=== PATIENT | female | born 2000 | race Caucasian/White ===

== ENCOUNTER 2019-12-31 08:10 | Emergency (ER) | payer OTHER, SELFPAY ==
--- NOTE | ~2019-12-31 | XR_ITS ---
EXAMINATION: [id number] DATE: 12/31/2019 08:39 INDICATION: Mid left-sided rib pain post fall TECHNIQUE: A frontal inspiratory view of the chest and 4 views of the left ribs were obtained. COMPARISON: None FINDINGS: No rib fractures identified. Lungs are clear with no focal airspace opacities, pulmonary edema, pleur al effusion or pneumothorax. Cardiomediastinal silhouette is normal. IMPRESSION: 1. No rib fracture or acute cardiopulmonary disease. Reviewed, dictated and finalized at location A.
[2019-12-31 08:23] VITALS: BP 140/84; PULSE 73; RESP 18; TEMP 36.6; O2SAT 100
--- NOTE | 2019-12-31 08:36 | ED.GENADULT ---
HPI - General Adult General Chief complaint: Wound/Laceration Stated complaint: Rib pain/shortness of breath Time Seen by Provider: 12/31/19 08:36 Source: patient Mode of arrival: ambulatory Limitations: no limitations History of Present Illness HPI narrative: Pretty Pretty is a 19 yo female who comes to express care with left rib pain after falling off bed when horsing around with friends. States she has tenderness that runs from her flank forward. Here for chest x-ray to make sure she did not break a rib Related Data Allergies Allergy/AdvReac Type Severity Reaction Status Date / Time No Known Allergies Allergy Verified 12/31/19 08:31 Review of Systems Review of Systems: Narrative: CONSTITUTIONAL: Denies fever, chills, sweats. EYES: Denies visual changes, redness, discharge. ENT: Denies rhinorrhea, congestion, sore throat, otalgia. CARDIOVASCULAR: Denies chest pain, palpitations, edema. RESPIRATORY: Denies dyspnea, wheezing, cough. Chest wall pain GASTROINTESTINAL: Denies abdominal pain, nausea, vomiting, diarrhea. GENITOURINARY: Denies dysuria, hematuria, abnormal discharge SKIN: Denies rash or itching. NEUROLOGIC: Denies numbness, or focal weakness. PSYCHIATRIC: Denies anxiety or depression. [facility] Family History Family History (Updated 12/31/19 @ 08:42 by Tosin Camacho CNP) Other Hypertension Social History Social History (Updated 12/31/19 @ 08:41 by Tosin Camacho CNP) Smoking status: Current some day smoker Tobacco type: e-cigarettes/vaping Alcohol intake: current Comments At time of signature, I agree with nursing past medical, surgical, social and family history. There is no relevant family history pertinent to the presenting complaint. Exam Narrative: Exam Narrative: GENERAL: This is a well-nourished, well-developed patient, in mild distress. HEAD: normocephalic, atraumatic. EYES Sclera clear/white. Vision is grossly intact. EARS: External ears normal, . Hearing grossly intact. NOSE: External nose normal without nasal discharge, nares without redness, no rhinorrhea. THROAT: Mucous membranes moist, NECK: Neck supple, non-tender CARDIOVASCULAR: Regular rate and rhythm without murmurs, gallops, or rubs. RESPIRATORY: Clear to auscultation. Breath sounds equal bilaterally. No wheezes, rales, or rhonchi. Chest wall tenderness on the left at rib 5 6 patient states it hurts to take deep breath GASTROINTESTINAL: Abdomen soft, non-tender, SKIN: warm, intact with no suspicious lesions or rash, good texture and turgor. NEURO: awake, alert, and oriented to person, place and time. There were no obvious focal neurologic abnormalities. Steady gait EXTREMITIES: Normal range of motion. BACK: Nontender without deformity Course Course Emergency Course: X-ray of ribs Baclofen Vital Signs Vital signs: Vital Signs Temperature 97.8 F 12/31/19 08:23 Pulse Rate 73 12/31/19 08:23 Respiratory Rate 18 12/31/19 08:23 Blood Pressure 140/84 12/31/19 08:23 Pulse Oximetry 100 12/31/19 08:23 Temperature 97.8 F 12/31/19 08:23 Pulse Rate 73 12/31/19 08:23 Respiratory Rate 18 12/31/19 08:23 Blood Pressure 140/84 12/31/19 08:23 Pulse Oximetry 100 12/31/19 08:23 Medical Decision Making Differential Diagnosis Differential Diagnosis: Rib contusion versus fracture Vital Signs Vital Signs: Vital Signs Temperature 97.8 F 12/31/19 08:23 Pulse Rate 73 12/31/19 08:23 Respiratory Rate 18 12/31/19 08:23 Blood Pressure 140/84 12/31/19 08:23 Pulse Oximetry 100 12/31/19 08:23 Temperature 97.8 F 12/31/19 08:23 Pulse Rate 73 12/31/19 08:23 Respiratory Rate 18 12/31/19 08:23 Blood Pressure 140/84 12/31/19 08:23 Pulse Oximetry 100 12/31/19 08:23 Discharge Plan Discharge Clinical Impression: Acute chest wall pain Patient Disposition: Home, Self-Care Condition: Stable Instructions: Chest Wall Pain (ED) Prescriptions: Ne
== END 2019-12-31 09:00 | disposition home or self-care (01) ==
PROVIDERS: Emergency Provider Nurse Practitioner; PCP Pediatrics
DX: R07.89 Other chest pain (principal); F17.290 Nicotine dependence, other tobacco product, uncomplicated; W06.XXXA Fall from bed, initial encounter; Y93.83 Activity, rough housing and horseplay
CPT/HCPCS: 71101; 99213; G0463

== ENCOUNTER 2020-03-25 12:39 | Emergency (ER) | payer OTHER, SELFPAY ==
[2020-03-25 12:49] VITALS: BP 118/80; PULSE 100; RESP 16; TEMP 36.9; O2SAT 98
--- NOTE | 2020-03-25 13:51 | ED.GENADULT ---
HPI - General Adult General Chief complaint: Upper Respiratory Infection Stated complaint: sore throat Time Seen by Provider: 03/25/20 13:52 Source: patient and RN notes reviewed Mode of arrival: ambulatory Limitations: no limitations History of Present Illness HPI narrative: 19-year-old female presents with complaints of sore throat and intermittent headache (none now, and not the worst of her life) for the past 2 days. Excedrin with little relief. No high fevers, drooling, neck or throat swelling. Pain is bilateral. Hurts to swallow. Exacerbation factors consist of eating and drinking. No rhinorrhea. Nasal congestion. No voice change. No nausea, vomiting, or abdominal pain. Tolerating liquids well. Denies chills, dyspnea, difficulty swallowing, jaw pain, dental pain, facial pain, foreign body sensation, and rash. Remains active. The patient reports she have not been diagnosed with COVID-19. The patient reports she is not waiting for the results of a COVID-19 lab test. The patient reports she do not have fever, chills, weakness, or fatigue The patient reports she do not have a new or worsening cough or shortness of breath. Denies chest pain. The patient reports she do not have any rhinorrhea, congestion, loss of taste, or diarrhea. Tolerating po intake well. Denies recent traveling. Denies concerns for COVID-19 or exposures been home with limited outdoor exposure except for essential household needs, work, and return home. At this time, patient is not suspected of having COVID-19. Some parts of this dictation were generated by voice recognition software and may contain typographical and/or grammatical inaccuracies. Related Data Allergies Allergy/AdvReac Type Severity Reaction Status Date / Time No Known Allergies Allergy Verified 12/31/19 08:31 Review of Systems Review of Systems: Narrative: CONSTITUTIONAL: Denies fever, chills, sweats. EYES: Denies visual changes, redness, discharge. ENT: Denies rhinorrhea, otalgia, congestion. Complains of sore throat. CARDIOVASCULAR: Denies chest pain, palpitations, edema. RESPIRATORY: Denies dyspnea, wheezing. Complains of cough. GASTROINTESTINAL: Denies abdominal pain, nausea, vomiting, diarrhea. GENITOURINARY: Denies dysuria, hematuria, abnormal discharge. SKIN: Denies rash or itching. MUSCULOSKELETAL: Denies acute back pain, joint pain, or myalgia. NEUROLOGIC: Denies numbness or focal weakness. PSYCHIATRIC: Denies anxiety or depression. Complains of intermittent CARMONA, All systems reviewed & are unremarkable except as noted in HPI and below. [facility] Past Medical History Medical History (Updated 03/26/20 @ 00:00 by Damian Dadave) Appendicitis Surgical History Surgical History (Updated 03/25/20 @ 14:16 by NASH Glasgow) Hx of appendectomy Family History Family History (Updated 03/25/20 @ 14:17 by NASH [place]) Father Hypertension Mother Multiple sclerosis Social History Social History (Updated 03/25/20 @ 14:18 by NASH [place]) Smoking status: Former smoker Tobacco type: e-cigarettes/vaping Second hand tobacco smoke exposure: No Smoking end date: 01/02/20 Alcohol intake: current Substance use: never Gender identity (if verbalized by the patient): Female Comments At time of signature, agree with nurse past medical, surgical, social, and family history. There is no relevant family history pertinent to the presenting complaint. Exam Narrative: Exam Narrative: GENERAL: This is a well-nourished, well-developed patient, in no apparent distress. Speaks in full sentences without deficits and ambulates with steady gait without dyspnea. HEAD: normocephalic, atraumatic. EYES: PERRL. Sclera clear/white. Vision is grossly intact. EARS: External ears normal, auditory canals clear and without drainage, TMs normal without perforation. Hearing grossly intact. NOSE: External nose normal with no obvious nasal di
== END 2020-03-25 14:31 | disposition home or self-care (01) ==
PROVIDERS: Emergency Provider Nurse Practitioner Family
DX: J02.9 Acute pharyngitis, unspecified (principal); Z20.828 Contact with and (suspected) exposure to other viral communicable diseases
CPT/HCPCS: 87081; 87804; 87880; 99213; G0463

== ENCOUNTER 2020-05-29 15:37 | Emergency (ER) | payer OTHER, SELFPAY ==
--- NOTE | ~2020-05-29 | CT_ITS ---
EXAMINATION: CT facial bones wo con DATE: 05/29/2020 18:20 INDICATION: Black eye. Nasal pain. TECHNIQUE: Computed tomography (CT) of the facial bones was performed without intravenous contrast. T he dose-length product was 273.04 mGy-cm. Automated exposure control and iterative reconstruction nba hnique were employed. COMPARISON: None FINDINGS: There is a minimally displaced left nasal fracture. Mild soft tissue swelling. No foreign b odies. Orbits are unremarkable without evidence for fracture. Paranasal sinuses are pneumatized. Vinny ible within normal limits. Temporal mandibular joints are symmetric. Visualized aspects of the upper cervical spine are unremarkable. Zygomatic arches and pterygoid plates are normal. IMPRESSION: 1. Minimally displaced left nasal fracture. Reviewed, dictated and finalized at location A.
[2020-05-29 15:38] VITALS: BP 149/83; PULSE 83; RESP 18; TEMP 36.3; O2SAT 100
[2020-05-29 16:53] VITALS: BP 132/89; PULSE 76; RESP 18; TEMP 36.7; O2SAT 100
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
[2020-05-29 18:45] VITALS: BP 156/95; PULSE 76; RESP 18; TEMP 36.4; O2SAT 98
== END 2020-05-29 20:05 | disposition home or self-care (01) ==
PROVIDERS: Emergency Provider Emergency Medicine
DX: S02.2XXA Fracture of nasal bones, initial encounter for closed fracture (principal); Z87.891 Personal history of nicotine dependence; Y04.2XXA Assault by strike against or bumped into by another person, initial encounter
CPT/HCPCS: 70486; 99284

== ENCOUNTER 2020-06-26 16:53 | Emergency (ER) | payer OTHER, SELFPAY ==
[2020-06-26 17:00] VITALS: BP 134/80; PULSE 82; RESP 18; TEMP 36.7; O2SAT 100
--- NOTE | 2020-06-26 17:04 | ED.ABDPAIN ---
HPI - Abdominal Pain General Chief Complaint: Abdominal Pain Stated Complaint: abdominal pain Time Seen by Provider: 06/26/20 17:05 Source: patient and RN notes reviewed Mode of arrival: ambulatory Limitations: no limitations History of Present Illness HPI narrative: 20-year-old female presents with concern for nausea, vomiting, diarrhea. Reports symptoms started over the weekend. Reports last episode of vomiting was on Thursday. Reports diarrhea episodes have been lessening. Reports 2 episodes diarrhea today. She denies fever, chills, body aches, cough, sweats, chills, runny nose, nasal congestion, sore throat, headache. Reports she was positive for Covid at the end of March. Reports she started her menstrual period yesterday MD elicited complaint: other (Nausea vomiting diarrhea) Related Data Home Medications Medication Instructions Recorded Confirmed No Home Medications 05/29/20 05/29/20 Allergies Allergy/AdvReac Type Severity Reaction Status Date / Time No Known Allergies Allergy Verified 06/26/20 17:09 Review of Systems Review of Systems: Narrative: CONSTITUTIONAL: Denies malaise, chills, sweats, or fever. EYES: Denies visual changes, redness, or discharge. ENT: Denies rhinorrhea, congestion, sinus pain, otalgia or sore throat. CARDIOVASCULAR: Denies chest pain, palpitations, or edema. RESPIRATORY: Denies cough or dyspnea. GASTROINTESTINAL: Denies abdominal pain, bloody, or mucous stools. Reports vomiting throughout the weekend, reports last vomiting episode was on Thursday. Reports diarrhea throughout the weekend, episodes of diarrhea have been lessening. Reports 2 episodes of diarrhea today. GENITOURINARY: Denies dysuria or hematuria. SKIN: Denies rash or itching. MUSCULOSKELETAL: Denies back pain or myalgia. NEUROLOGIC: Denies headache. All systems reviewed & are unremarkable except as noted in HPI and below PMFSH Past Medical History Medical History (Updated 06/26/20 @ 17:15 by Viola Jones NP) Appendicitis Surgical History Surgical History (Updated 03/25/20 @ 14:16 by NASH Glasgow) Hx of appendectomy Family History Family History (Updated 03/25/20 @ 14:17 by NASH Glagsow) Father Hypertension Mother Multiple sclerosis Social History Social History (Updated 03/25/20 @ 14:18 by NASH [place]) Smoking status: Former smoker Tobacco type: e-cigarettes/vaping Second hand tobacco smoke exposure: No Smoking end date: 01/02/20 Alcohol intake: current Substance use: never Gender identity (if verbalized by the patient): Female Comments At time of signature, agree with nursing past medical, surgical, social and family history. There is no relevant family history pertinent to the presenting complaint Exam Narrative: Exam Narrative: GENERAL: Well-appearing, well-nourished, and in no acute distress. HEAD: Normocephalic, atraumatic. EYES: PERRLA, conjunctivae clear, and EOMI. ENT: Mucous membranes moist. NECK: Supple. No lymphadenopathy CHEST: Speaks in full sentences. No respiratory distress. HEART: Regular rate and rhythm. ABDOMEN: Soft, flat, nondistended. No guarding, rebound tenderness, or rigid. No pulsatilla masses. Bowel sounds present in all four quadrants. No organomegaly. Negative Moore?s sign. No periumbilical tenderness. No Supra public tenderness or distension. Good femoral pulses bilaterally. No hernia noted. No scars or surface trauma. SKIN: Warm, dry, no rash. NEURO: Alert and oriented x3. PSYCH: Normal mood and affect Course Course Emergency Course: Patient is aware of diagnosis, understands and agrees to treatment plan. Anticipatory guidance given. Patient agrees to follow-up as directed and is aware of reasons to seek care at the emergency department. Portions of this record may have been created with voice recognition software Vital Signs Vital signs: Vital Signs Temperature 98.1 F 06/26/20 17:00 Pulse Ra
[2020-06-26 17:10] VITALS: BP 134/80; PULSE 82; RESP 18; TEMP 36.7; O2SAT 100
== END 2020-06-26 17:18 | disposition home or self-care (01) ==
PROVIDERS: Emergency Provider Nurse Practitioner
DX: R11.10 Vomiting, unspecified (principal); R19.7 Diarrhea, unspecified; F17.200 Nicotine dependence, unspecified, uncomplicated
CPT/HCPCS: 99211; G0463

== ENCOUNTER 2022-04-09 12:29 | Emergency (ER) | payer OTHER, SELFPAY ==
--- NOTE | 2022-04-09 12:34 | ED.SKABFB ---
HPI - Skin/Abscess/Foreign Bdy General Chief complaint: Skin/Abscess/Foreign Body Stated complaint: RASH Time Seen by Provider: 04/09/22 12:35 Source: patient and RN notes reviewed History of Present Illness HPI narrative: Patient is a 21-year-old female who presents the urgent care with complaints of a itchy circular rash to the left arm, right chest and the bridge of the nose. Patient states she noticed the areas on the left arm approximately 2 weeks ago and has since spread. Patient has not done anything [id number] for her symptoms. Patient states that she does not use a public gym or showering. States that no one else in the home has the rash. No other acute complaints. No acute distress noted. Patient aware of the plan of care. Some parts of this dictation were generated by voice recognition software and may contain typographical and/or grammatical inaccuracies. Related Data Allergies Allergy/AdvReac Type Severity Reaction Status Date / Time No Known Allergies Allergy Verified 06/26/20 17:09 Review of Systems Review of Systems: CONSTITUTIONAL: Denies fever, chills, or sweats. EYES: Denies visual changes, redness, or discharge. ENT: Denies rhinorrhea, congestion, sore throat, or otalgia. CARDIOVASCULAR: Denies chest pain, palpitations, or edema. RESPIRATORY: Denies cough or dyspnea. GASTROINTESTINAL: Denies abdominal pain, nausea, vomiting, or diarrhea. GENITOURINARY: Denies dysuria or hematuria. SKIN: Reports of circular itchy rash to the left upper arm, right chest and bridge of the nose MUSCULOSKELETAL: Denies back pain, joint pain, or myalgia. NEUROLOGIC: Denies headache, numbness, or weakness. All other systems reviewed are negative, except as documented in HPI. [facility] Past Medical History Medical History (Updated 04/09/22 @ 12:53 by NASH Stewart) Appendicitis Surgical History Surgical History (Updated 03/25/20 @ 14:16 by NASH Glasgow) Hx of appendectomy Family History Family History (Updated 03/25/20 @ 14:17 by NASH Glasgow) Father Hypertension Mother Multiple sclerosis Social History Social History (Updated 03/25/20 @ 14:18 by NASH [place]) Smoking status: Former smoker Tobacco type: e-cigarettes/vaping Second hand tobacco smoke exposure: No Smoking end date: 01/02/20 Alcohol intake: current Substance use: never Gender identity (if verbalized by the patient): Female Sexual Orientation (if Verbalized by the Patient): Straight or Heterosexual Comments At the time of my signature, I reviewed and agree with the nursing past medical, surgical, social, and family history. There is no relevant family history pertinent to the patient complaint. Exam Narrative: GENERAL: This is a well-nourished, well-developed patient, in no apparent distress. HEAD: normocephalic, atraumatic. EYES: PERRL. Sclera clear/white. Vision is grossly intact. EARS: External ears normal NOSE: External nose normal with no obvious nasal discharge, nares without redness, no rhinorrhea. THROAT: Mucous membranes moist NECK: Neck supple CARDIOVASCULAR: Regular rate and rhythm without murmurs, gallops, or rubs. RESPIRATORY: Clear to auscultation. Breath sounds equal bilaterally. No wheezes, rales, or rhonchi. SKIN: tinea corporis lesions noted to the left arm, right chest and the bridge of the nose measuring approximately 0.25 to 0.5 cm in circumference. warm, intact with no suspicious lesions or rash, good texture and turgor. NEURO: awake, alert, and oriented to person, place and time. There were no obvious focal neurologic abnormalities. EXTREMITIES: No clubbing, cyanosis, or edema. Course Course Level of Care: Express Care Visit Vital Signs Vital signs: Vital Signs Temperature 98.2 F 04/09/22 12:35 Pulse Rate 68 04/09/22 12:35 Respiratory Rate 16 04/09/22 12:35 Blood Pressure 117/88 04/09/22 12:35 Pulse Oximetry 98 04/09/22 12:35 Oxy
[2022-04-09 12:35] VITALS: BP 117/88; PULSE 68; RESP 16; TEMP 36.8; O2SAT 98
== END 2022-04-09 13:00 | disposition home or self-care (01) ==
PROVIDERS: Emergency Provider Nurse Practitioner Family; PCP Nurse Practitioner Family
DX: B35.4 Tinea corporis (principal)
CPT/HCPCS: 99213; G0463

== ENCOUNTER 2022-05-18 18:45 | Emergency (ER) | payer OTHER, SELFPAY ==
[2022-05-18 19:15] VITALS: BP 111/60; PULSE 81; RESP 16; TEMP 36.4; O2SAT 100
[2022-05-18 19:49] LABS: Add Urine Microscopic? NO; Appearance Urine Clear (Clear); Bilirubin Urine Negative (Negative); Blood Urine Negative (Negative); Color Urine Yellow (Yellow); Glucose Urine UA Negative (Negative); Ketones Urine Negative (Negative); Leukocyte Esterase Ur Negative LEU/UL (Negative); Nitrate Urine Negative (Negative); Protein Urine Negative (Negative); Specific Grav Ur 1.021 (1.001-1.035); Urobilinogen Urine Negative mg/dL (<2.0)
--- NOTE | 2022-05-18 21:47 | PC.NURSE ---
patient walked out of ED without difficulty and in no distress.
== END 2022-05-18 22:53 | disposition left against medical advice (07) ==
PROVIDERS: Emergency Provider Emergency Medicine; PCP Nurse Practitioner Family
DX: R31.9 Hematuria, unspecified (principal)
CPT/HCPCS: 81003; 81025; 99199

== ENCOUNTER 2022-05-19 18:47 | Emergency (ER) | payer OTHER, SELFPAY ==
[2022-05-19 19:02] VITALS: BP 141/71; PULSE 91; RESP 16; TEMP 36.7; O2SAT 100
--- NOTE | 2022-05-19 19:34 | ED.FEMALEGU ---
HPI - Female Genitourinary General Chief complaint: Urogenital-Female Stated complaint: lower back pain/blood in urine Time Seen by Provider: 05/19/22 19:34 Source: patient and RN notes reviewed Mode of arrival: ambulatory Limitations: no limitations History of Present Illness HPI Narrative: 22-year-old female presented for complaint of urinary frequency and low pelvic cramps and mid low back pain x2 days. LMP ended 04/30. Not on control, endorses new sexual partner. Denies irregular vaginal bleeding, discharge, itching, dysuria, hematuria, fevers or chills. She is not taking anything for symptoms. Related Data Home Medications Medication Instructions Recorded Confirmed ergocalciferol (vitamin D2) 1,250 50,000 unit PO DAILY 05/19/22 05/19/22 mcg (50,000 unit) capsule Allergies Allergy/AdvReac Type Severity Reaction Status Date / Time No Known Allergies Allergy Verified 05/19/22 19:18 Review of Systems Review of Systems: CONSTITUTIONAL: Denies body aches, fever, chills, or sweats. CARDIOVASCULAR: Denies chest pain, palpitations, or edema. RESPIRATORY: Denies cough or dyspnea. GASTROINTESTINAL: Denies abdominal pain, nausea, vomiting, or diarrhea. GENITOURINARY: Per HPI SKIN: Denies rash, itching, or wounds. MUSCULOSKELETAL: Denies back pain or myalgia. [facility] Past Medical History Medical History Appendicitis Surgical History Surgical History Hx of appendectomy Family History Family History Father Hypertension Mother Multiple sclerosis Social History Social History Smoking status: Former smoker Tobacco type: e-cigarettes/vaping Second hand tobacco smoke exposure: No Smoking end date: 01/02/20 Alcohol intake: current Substance use: never Gender identity (if verbalized by the patient): Female Sexual Orientation (if Verbalized by the Patient): Straight or Heterosexual Comments At time of signature, I have reviewed and agree with nursing past medical, surgical, social and family history unless otherwise noted. Please see nursing chart for further information. There is no relevant family history pertinent to the presenting complaint Exam Narrative: GENERAL: Well-appearing ENT: Mucous membranes pink and moist. CHEST: No respiratory distress. Clear to auscultation. HEART: Regular rate and rhythm. ABDOMEN: Soft, mild suprapubic tenderness with palpation, nondistended, normal active bowel sounds. No CVA tenderness MUSCULOSKELETAL: Mid lumbar paraspinal tenderness SKIN: Warm, dry, no rash. PSYCH: Normal affect. No signs of depression or anxiety. Course Course Emergency Course: Patient is aware of diagnosis, understands and agrees to treatment plan. Anticipatory guidance given. Patient agrees to follow-up as directed and is aware of reasons to seek care at the emergency department. Portions of this record may have been created with voice recognition software Level of Care: Express Care Visit Vital Signs Vital signs: Vital Signs Temperature 98.1 F 05/19/22 19:02 Pulse Rate 91 05/19/22 19:02 Respiratory Rate 16 05/19/22 19:02 Blood Pressure 141/71 H 05/19/22 19:02 Pulse Oximetry 100 05/19/22 19:02 Oxygen Delivery Room Air 05/19/22 19:02 Temperature 98.1 F 05/19/22 19:02 Pulse Rate 91 05/19/22 19:02 Respiratory Rate 16 05/19/22 19:02 Blood Pressure 141/71 H 05/19/22 19:02 Pulse Oximetry 100 05/19/22 19:02 Oxygen Delivery Room Air 05/19/22 19:02 Reviewed MDM - Female Genitourinary MDM Narrative Medical decision making narrative: Urine Preg negative, urine dip unremarkable. Results reviewed with patient. Urine specimen collected for GC, chlamydia, trich. Informed Pt will be contacted w/ resu
== END 2022-05-19 20:00 | disposition home or self-care (01) ==
PROVIDERS: Emergency Provider Nurse Practitioner Family; PCP Nurse Practitioner Family
DX: R35.0 Frequency of micturition (principal); Z11.3 Encounter for screening for infections with a predominantly sexual mode of transmission
CPT/HCPCS: 81003; 81025; 87086; 87491; 87591; 87661; 99214; G0463

== ENCOUNTER 2022-12-08 10:43 | Emergency (ER) | payer SELFPAY ==
--- NOTE | ~2022-12-08 | XR_ITS ---
EXAMINATION: XR chest 2V 12/08/2022 11:15 INDICATION: Chest tightness PROCEDURE: 2 view chest COMPARISON: No prior studies for comparison. FINDINGS: The lungs are clear. The cardiomediastinal silhouette is within normal limits. There are no pleural effusions. There is no pneumothorax suspected. IMPRESSION: 1: NO ACUTE CARDIOPULMONARY DISEASE. Reviewed, dictated and finalized at location B.
[2022-12-08 10:44] VITALS: BP 144/76; PULSE 95; RESP 18; TEMP 36.8; O2SAT 100
--- NOTE | 2022-12-08 10:55 | PC.NURSE ---
States she is having chest tightness and discomfort in the middle of her chest that has been ongoing since yesterday. States the tightness severity has reduced in that time.
--- NOTE | 2022-12-08 10:56 | ECG_ITS ---
Measurements Intervals [place] Rate: 82 P: 32 KS: 149 QRS: 33 QRSD: 86 T: 26 QT: 373 QTc: 437 Interpretive Statements SINUS RHYTHM FREQUENT VENTRICULAR PREMATURE COMPLEXES ABNORMAL ECG NO PREVIOUS ECG AVAILABLE FOR COMPARISON Electronically Signed On 12-08-2022 13:23:40 CDT by Tom Gavin D.O.
[2022-12-08 11:42] VITALS: BP 129/89; PULSE 76; RESP 23; O2SAT 99
[2022-12-08] MEDS: ASPIRIN 81 MG CHEWABLE TABLET 324 MG PO (11:43)
[2022-12-08 11:46] VITALS: BP 127/104; PULSE 72; RESP 21; O2SAT 100
[2022-12-08 11:46] LABS: Basophils Percent Auto 0.2 % (0.2-1.2); Eosinophils Absolute Auto 0.1 K/mm3 (0-0.3); Eosinophils Percent Auto 1.3 % (0-4.4); Hematocrit 38.7 % (37.0-47.0); Hemoglobin 12.8 g/dL (12.0-15.0); Immature Granulocyte Absolute 0.01 K/mm3 (0.00-0.031); Immature Granulocyte Percent A 0.2 % (0-0.5); Lymphocytes Absolute Auto 1.29 K/mm3 (0.9-3.2); Lymphocytes Percent Auto 28.2 % (18.3-44.2); Mean Corpuscular HGB Conc 33.1 g/dl (32-36); Mean Corpuscular Hemoglobin 28.8 pg (26-34); Mean Platelet Volume 10.9 fl (7.4-10.4); Monocytes Absolute Auto 0.3 K/mm3 (0.1-0.6); Monocytes Percent Auto 5.9 % (2.6-8.5); Neutrophils Absolute Auto 2.9 K/mm3 (1.3-6.7); Neutrophils Percent Auto 64.2 % (45.5-73.1); Platelet Count Result 206 k/mm3 (150-375); Red Blood Count 4.45 M/mm3 (4.2-5.4); Red Cell Distribution Width 11.9 % (11.5-14.5); White Blood Count 4.6 K/mm3 (4.5-10.0)
--- NOTE | 2022-12-08 11:51 | ED.ARRPALP ---
HPI - Arrhythmia/Palpitations General Chief Complaint: Arrhythmia/Palpitations Stated Complaint: palp Time Seen by Provider: 12/08/22 11:16 History of Present Illness HPI narrative: 22-year-old female presents with chest palpitations and tightness since Thursday at 1 AM. Patient states she was sitting at home and felt chest tightness and palpitations. Patient has a history of anxiety and was having an anxiety attack at the time. Patient called 911 was checked out by EMS. Patient refused to go to the hospital and was told the EKG had an irregular rhythm. Patient called PCP this morning and was instructed to go to the ER for further evaluation. Patient states she still having slight chest tightness and feels palpitations every once in a while. Patient denies history of irregular heartbeats or cardiac abnormalities. Patient takes Ativan for anxiety. Patient denies any other symptoms Onset (ago): day(s) Associated symptoms: anxiety Related Data Home Medications Medication Instructions Recorded Confirmed ergocalciferol (vitamin D2) 1,250 50,000 unit PO DAILY 05/19/22 05/19/22 mcg (50,000 unit) capsule Allergies Allergy/AdvReac Type Severity Reaction Status Date / Time No Known Allergies Allergy Verified 05/19/22 19:18 Review of Systems Review of Systems: A 10 system review of systems was completed on the patient and is negative except for what is stated in the HPI. Nursing and ancillary documentation was reviewed. [facility] Past Medical History Medical History Appendicitis Surgical History Surgical History Hx of appendectomy Family History Family History Father Hypertension Mother Multiple sclerosis Social History Social History Smoking status: Former smoker Tobacco type: e-cigarettes/vaping Second hand tobacco smoke exposure: No Smoking end date: 01/02/20 Alcohol intake: current Substance use: never Living arrangements: with family Occupation/Education: occupation Gender identity (if verbalized by the patient): Female Sexual Orientation (if Verbalized by the Patient): Straight or Heterosexual Exam Narrative: GENERAL: Well-appearing, well-nourished, and in no acute distress. HEAD: Normocephalic, atraumatic. EYES: PERRLA and EOMI. ENT: Nares clear, no rhinorrhea or epistaxis. Mucous membranes moist. NECK: Supple. CHEST: Clear to auscultation. No respiratory distress. HEART: normal rate with intermittent irregular rhythm. No murmur heard. Normal peripheral pulses. ABDOMEN: Soft, nontender, nondistended, normal active bowel sounds. EXTREMITIES: Normal range of motion. No edema. SKIN: Warm, dry, no rash. NEURO: No focal deficits. Alert and oriented x3. PSYCH: Normal mood and affect. Course Course Emergency Course: EKG performed at 1103 shows sinus rhythm with PVC. Consultations Consultation #1: Spoke with Nena Schulte NP regarding patient. Will refer to cardiology and patient to follow-up with her in 2 to 3 days Date: 12/08/22 Time: 12:54 Vital Signs Vital signs: Vital Signs Temperature 36.8 C 12/08/22 10:44 Pulse Rate 95 12/08/22 10:44 Respiratory Rate 18 12/08/22 10:44 Blood Pressure 144/76 H 12/08/22 10:44 Pulse Oximetry 100 12/08/22 10:44 Oxygen Delivery Room Air 12/08/22 10:44 Temperature 36.8 C 12/08/22 10:44 Pulse Rate 95 12/08/22 10:44 Respiratory Rate 18 12/08/22 10:44 Blood Pressure 144/76 H 12/08/22 10:44 Pulse Oximetry 100 12/08/22 10:44 Oxygen Delivery Room Air 12/08/22 10:44 MDM - Arrhythmia/Palpitations MDM Narrative Medical decision making narrative: Will refer to cardiology and have the patient follow-up with PCP Differential Diagnosis Differential diagnosis:
[2022-12-08 11:57] LABS: Alanine Aminotransferase 18 U/L (6-35); Albumin Level 4.7 g/dL (3.5-5.1); Alkaline Phosphatase 38 U/L (38-126); Anion Gap 8 mmol/L (8-16); Aspartate Amino Transferase 18 U/L (14-36); Bilirubin,Total 0.7 mg/dL (0.2-1.3); Blood Urea Nitrogen 9 mg/dL (7-17); Calcium 9.2 mg/dL (8.4-10.2); Carbon Dioxide 25 mmol/L (22-30); Chloride 105 mmol/L (98-107); Estimated CRCL calculation 108 ml/min; Estimated Glomerular Filt Rate > 60; Glucose 96 mg/dL (65-110); Lipase 52 U/L (23-300); Magnesium 1.8 mg/dL (1.6-2.3); Sodium 138 mmol/L (137-145)
[2022-12-08 12:01] VITALS: BP 122/107; PULSE 75; RESP 18; O2SAT 98
[2022-12-08 12:08] LABS: Prothrombin Time 13.5 Seconds (11.1-14.7); Troponin I < 0.012 ng/mL (0.000-0.034)
[2022-12-08 12:09] LABS: Partial Thromboplastin Time 26.3 SECONDS (22.3-36.8)
[2022-12-08 12:16] VITALS: BP 125/90; PULSE 73; RESP 28; O2SAT 100
== END 2022-12-08 13:14 | disposition home or self-care (01) ==
PROVIDERS: Preventive Medicine Aerospace Medicine; Emergency Provider Nurse Practitioner Family; PCP Nurse Practitioner Family
DX: R00.2 Palpitations (principal); F41.9 Anxiety disorder, unspecified; I49.3 Ventricular premature depolarization; F17.290 Nicotine dependence, other tobacco product, uncomplicated
CPT/HCPCS: 36415; 71046; 80053; 83690; 83735; 84443; 84484; 85025; 85380; 85610; 85730; 93005; 99284; A9270

== ENCOUNTER 2024-09-02 09:59 | Emergency (ER) | payer OTHER, SELFPAY ==
--- NOTE | ~2024-09-02 | XR_ITS ---
EXAMINATION: XR chest 2V 09/02/2024 10:45 INDICATION: Syncope PROCEDURE: 2 view chest COMPARISON: 12/08/2022 FINDINGS: The lungs are clear. The cardiomediastinal silhouette is within normal limits. There are no pleural effusions. There is no pneumothorax suspected. IMPRESSION: 1: NO ACUTE CARDIOPULMONARY DISEASE. Reviewed, dictated and finalized at location A. BOX WORKER
[2024-09-02 09:55] VITALS: BP 116/82; PULSE 77; RESP 16; TEMP 36.4; O2SAT 100
--- NOTE | 2024-09-02 10:03 | ECG_ITS ---
Test Date: 2024-09-02 10:05:22 Measurements Intervals [place] Rate: 78 P: 42 UT: 158 QRS: 43 QRSD: 89 T: 49 QT: 390 QTc: 444 Interpretive Statements SINUS RHYTHM No previous ECG available for comparison Electronically Signed On 09-02-2024 14:38:01 SLOT FLOOR SUPERVISOR by Elan Garcia M.D.
--- NOTE | 2024-09-02 10:08 | ED_ITS ---
HPI - Syncope General Chief Complaint: Syncope Stated Complaint: syncopy Time Seen by Provider: 09/02/24 10:08 Source: patient Mode of arrival: EMS History of Present Illness HPI narrative: 24 YEARS OLD WHITE FEMALE CAME TO THE ED BY AMBULANCE FROM HOME. PATIENT IS TELLING ME THAT LAST NIGHT WENT WITH SOME OF HER FRIENDS AND HAD SOME ALCOHOL AND DOES NOT KNOW HOW SHE GOT BACK HOME, DOES NOT REMEMBER ANYTHING FROM THAT TIME UNTIL THIS MORNING WHEN SHE HEARD THE LAUNDRY AGENT KNOCKING ON HER DOOR. BECAUSE HER ROOMMATE NOTICED THAT THE SHOWER HAS BEEN ON PROBABLY ALL NIGHT LONG. PATIENT DENIES DRUG USE, IS TELLING ME THAT SHE HAVE FEW HOT SHOTS PATIENT DENYING ANY FEVER, CHILLS, NAUSEA, VOMITING, HEADACHE, CHEST PAIN, BACK PAIN, ABDOMINAL PAIN OR ANY PAIN PATIENT DENIES ANY ABNORMAL FEELING IN THE VAGINAL AREA OR ANAL AREA OR ANY PART OF HER BODY Related Data Home Medications ?Medication ?Instructions ?Recorded ?Confirmed ?Last Taken ?Type ergocalciferol (vitamin D2) 1,250 50,000 unit PO DAILY 05/19/22 12/12/22 Unknown History mcg (50,000 unit) capsule lorazepam 0.5 mg tablet 0.5 mg PO DAILY PRN 12/12/22 12/12/22 Unknown History Allergies Allergy/AdvReac Type Severity Reaction Status Date / Time No Known Allergies Allergy Verified 12/12/22 10:10 Review of Systems 2 Review of Systems: All systems reviewed & are unremarkable except as noted in HPI and below PMFSH Past Medical History Medical History Appendicitis Surgical History Surgical History Hx of appendectomy Family History Family History Father Hypertension Mother Multiple sclerosis Social History Social History Smoking status: Former smoker Tobacco type: e-cigarettes/vaping Second hand tobacco smoke exposure: No Smoking end date: 01/02/20 Alcohol intake: current Substance use: never Living arrangements: with family Occupation/Education: occupation Gender identity (if verbalized by the patient): Female Sexual Orientation (if Verbalized by the Patient): Straight or Heterosexual Exam 2 Narrative: GENERAL APPEARANCE: WELL-DEVELOPED, WELL-NOURISHED DOES NOT LOOK IN PAIN OR DISTRESS SKIN: NORMAL COLOR NO SIGNS OF TRAUMA, NO BRUISES, NO RASH HEAD: NORMOCEPHALIC, NONTRAUMATIC EYES: CLEAR CONJUNCTIVA ENT: OROPHARYNX NORMAL, EARS NORMAL, NOSE NORMAL NECK: SUPPLE, NONTENDER CHEST AND RESPIRATORY: AIRWAY PATENT, NO RESPIRATORY DISTRESS, NO ACCESSORY MUSCLE USE HEART: REGULAR RATE/RHYTHM ABDOMEN: SOFT, NONTENDER, NO ORGANOMEGALY, QUIET BOWEL SOUNDS VASCULAR: NORMAL PERIPHERAL PULSES, NORMAL CAPILLARY REFILL. MUSCULOSKELETAL: NORMAL RANGE OF MOTION, NONTENDER BACK NEUROLOGIC: ALERT AND ORIENTED ?3, AIR QUALITY CHEMIST IS NORMAL TESTED, NO GROSS MOTOR DEFICIT Course Vital Signs Vital signs: Vital Signs Temperature 36.4 C 09/02/24 09:55 Pulse Rate 77 09/02/24 09:55 Respiratory Rate 16 09/02/24 09:55 Blood Pressure 116/82 09/02/24 09:55 Pulse Oximetry 100 09/02/24 09:55 Oxygen Delivery Room Air 09/02/24 09:55 Temperature 36.4 C 09/02/24 09:55 Pulse Rate 77 09/02/24 09:55 Respiratory Rate 16 09/02/24 09:55 Blood Pressure 116/82 09/02/24 09:55 Pulse Oximetry 100 09/02/24 09:55 Oxygen Delivery Room Air 09/02/24 09:55 MDM - Syncope MDM Narrative Medical decision making narrative: PATIENT CAME TO THE ED BY AMBULANCE BECAUSE DOES NOT RECALL WHAT HAPPENED SINCE BEEN DRINKING ALCOHOL LAST NIGHT UNTIL THIS MORNING. VITAL SIGNS ARE STABLE PHYSICAL EXAMINATION IS UNREMARKABLE DIFFERENTIAL DIAGNOSIS ALCOHOL INTOXICATION, DRUG USE OR ABUSE BLOOD WORKUP TODAY INCLUDES CBC, CMP, ALCOHOL LEVEL SHOWED NO SIGNIFICANT ABNORMALITY URINE DRUG SCREEN URINALYSIS, SHOWED EVIDENCE OF INFECTION CHEST X-RAY, SHOWED NO ACUTE ABNORMAL EKG SHOWED NORMAL SINUS RHYTHM ALCOHOL LEVEL IS 136 I BELIEVE PATIENT AND AWARE OF WHAT HAVE BEEN BETWEEN GOING TO THE BAR AND WAKING UP THIS MORNING SECONDARY TO ALCOHOL OVERDOSE. CURRENTLY PATIENT FEELING OKAY DISCHARGE WITH DIAGNOSIS OF ALCOHOL ABUSE THE PT WAS DISCHARGED TO HOME.THE PT,S CONDITION UPON DISCHARGE WAS FAIR,EDUCATION WAS PROVIDED TO THE PT IN REFERENCE TO THE FINAL IMPRESSION,DISCHARGE STUDY RESULTS,TREATMENT,PROGNOSIS AND NEED FOR FOLLOW UP . Differential Diagnosis Differential diagnosis: Likely other ( ABOVE) Medical Records Attestation: I reviewed the patient's medical records. Lab Data Attestation: I reviewed the patient's lab results. 09/02/24 10:16 09/02/24 10:16 Labs: Lab Results 09/02/24 09/02/24 09/02/24 Range/Units 10:16 10:17 11:17 WBC 5.8 (4.5-10.0) K/mm3 RBC 4.80 (4.2-5.4) M/mm3 Hgb 14.0 (12.0-15.0) g/dL Hct 41.7 (37.0-47.0) % MCV 86.9 (80-100) fl MCH 29.2 (26-34) pg MCHC 33.6 (32-36) g/dl RDW 12.0 (11.5-14.5) % Plt Count 236 (150-375) k/mm3 MPV 10.8 H (7.4-10.4) fl Immature Gran % (Auto) 0.2 (0-0.5) % Neut % (Auto) 64.1 (45.5-73.1) % Lymph % (Auto) 29.4 (18.3-44.2) % [place] % (Auto) 5.5 (2.6-8.5) % Eos % (Auto) 0.3 (0-4.4) % Baso % (Auto) 0.5 (0.2-1.2) % Lymph # (Auto) 1.70 (0.9-3.2) K/mm3 [place] # (Auto) 0.3 (0.1-0.6) K/mm3 Eos # (Auto) 0.0 (0-0.3) K/mm3 Baso # (Auto) 0.0 (0.0-0.1) K/mm3 Abs Immat Gran (auto) 0.01 (0.00-0.031) K/mm3 Absolute Neuts (auto) 3.7 (1.3-6.7) K/mm3 Absolute Nucleated RBC 0.000 (0.0-0.012) K/mm3 Nucleated RBC % 0.0 (0.0-0.2) % Sodium 144 (137-145) mmol/L Potassium 3.8 (3.4-5.0) mmol/L Chloride 105 (98-107) mmol/L Carbon Dioxide 24 (22-30) mmol/L Anion Gap 15 H (4-12) mmol/L BUN 4 L D (7-17) mg/dL Creatinine 0.63 L (0.7-1.0) mg/dL Estim Creat Clear Calc Not Reportable Estimated GFR > 60 (59 - ) Glucose 82 (65-110) mg/dL Calcium 8.7 (8.4-10.2) mg/dL Total Bilirubin 0.5 (0.2-1.3) mg/dL AST 17 (14-36) U/L ALT 15 (6-35) U/L Alkaline Phosphatase 38 (38-126) U/L Total Protein 7.0 (6.3-8.2) g/dL Albumin 4.5 (3.5-5.1) g/dL POC Urine HCG, Qual Negative (Negative) Urine Opiates Screen Negative (Negative) Urine Methadone Screen Negative (Negative) Ur Barbiturates Screen Negative (Negative) Ur Phencyclidine Scrn Negative (Negative) Ur Amphetamine Screen Negative (Negative) U Benzodiazepines Scrn Negative (Negative) Urine Cocaine Screen Negative (Negative) U Cannabinoids Screen Negative (Negative) Ethyl Alcohol 136 (<10) mg/dL Imaging Data Radiologist's impression: Impressions Chest X-Ray 09/02/24 10:49 IMPRESSION: 1: NO ACUTE CARDIOPULMONARY DISEASE. Critical Care Time Critical Care Time Critical Care Time: No Discharge Plan Discharge Clinical Impression: Alcohol abuse Patient Disposition: Home, Self-Care Condition: Improved Instructions: Abuse of Alcohol (DC) Additional Instructions: RETURN IF SYMPTOMS ARE WORSENING , CALL YOUR FAMILY PHYSICIAN FOR APPOINTMENT, TAKE TYLENOL NEEDED FOR ACHES AND PAIN, CONTINUE HOME MEDICATIONS. Patient Language: Kosovan Prescriptions: No Action ergocalciferol (vitamin D2) 1,250 mcg (50,000 unit) capsule 50,000 unit PO DAILY lorazepam 0.5 mg tablet 0.5 mg PO DAILY PRN propranolol 10 mg tablet 10 mg PO Q12H Qty: 60 5RF Follow-up/Referrals: Franca,Carin Martinez APRN [Advanced Practice Nurse] -
[2024-09-02 10:19] LABS: BEDSIDEPREGUCG Negative (Negative)
[2024-09-02 10:25] LABS: Basophils Percent Auto 0.5 % (0.2-1.2); Eosinophils Percent Auto 0.3 % (0-4.4); Hematocrit 41.7 % (37.0-47.0); Immature Granulocyte Absolute 0.01 K/mm3 (0.00-0.031); Immature Granulocyte Percent A 0.2 % (0-0.5); Lymphocytes Percent Auto 29.4 % (18.3-44.2); Mean Corpuscular HGB Conc 33.6 g/dl (32-36); Mean Corpuscular Hemoglobin 29.2 pg (26-34); Mean Corpuscular Volume 86.9 fl (80-100); Mean Platelet Volume 10.8 fl (7.4-10.4); Monocytes Absolute Auto 0.3 K/mm3 (0.1-0.6); Monocytes Percent Auto 5.5 % (2.6-8.5); Neutrophils Absolute Auto 3.7 K/mm3 (1.3-6.7); Neutrophils Percent Auto 64.1 % (45.5-73.1); Platelet Count Result 236 k/mm3 (150-375); White Blood Count 5.8 K/mm3 (4.5-10.0)
[2024-09-02 10:40] LABS: Alanine Aminotransferase 15 U/L (6-35); Albumin Level 4.5 g/dL (3.5-5.1); Alkaline Phosphatase 38 U/L (38-126); Anion Gap 15 mmol/L (4-12); Aspartate Amino Transferase 17 U/L (14-36); Bilirubin,Total 0.5 mg/dL (0.2-1.3); Blood Urea Nitrogen 4 mg/dL (7-17); Calcium 8.7 mg/dL (8.4-10.2); Carbon Dioxide 24 mmol/L (22-30); Chloride 105 mmol/L (98-107); Estimated Glomerular Filt Rate > 60; Glucose 82 mg/dL (65-110); Potassium 3.8 mmol/L (3.4-5.0); Sodium 144 mmol/L (137-145)
--- OUTSIDE RECORDS SUMMARY | 2024-09-02 11:03 | XMS_ITS | Clinical Summary ---
Author Organization [facility] Virtual Care Address [address] [place] [phone] Phone Care Team Providers Care Casing Man Name Role Phone Isidro Ma MD Unavailable [phone] Marlene Valles MD Primary Care Provider [phone] Allergies No known active allergies Medications buPROPion SR (WELLBUTRIN SR) 200 mg 12 hr tablet Take 1 tablet (200 mg total) by mouth daily 4 Active hydrOXYzine (VISTARIL) 50 mg capsule 3 Active mirtazapine (REMERON) 30 mg tablet 3 Active propranoloL (INDERAL) 10 mg tablet 4 Active busPIRone (BUSPAR) 10 mg tablet Take 1 tablet (10 mg total) by mouth 3 (three) times a day 4 Active cyclobenzaprin e (FLEXERIL) 5 mg tabletIndicati ons:Cervical strain, acute, initial encounter,Foot sprain, left, initial encounter Take 1 tablet (5 mg total) by mouth 3 (three) times a day as needed (Take as directed to relax muscles) Collaborating physician Marcin Abraham MD 20 tablet 4 Active Active Problems Problem Noted Date Diagnosed Date Cervical strain, acute, initial encounter 2023 Foot sprain, left, initial encounter 04/19/2024 Multiple contusions 04/19/2024 Gastroenteritis 10/21/2022 Assessment & Plan (10/21/2022 9:50 AM CDT): Will send zofran to patient pharmacy to help ease n/v. In addition, work note sent. If symptoms worsen or do not improve patient instructed to reach out to PCP or go to ER for further evaluation. Increase fluid intake. Patient verbalized understanding and agreed to plan of care at this time. Cobalamin deficiency 04/09/2022 PVC (premature ventricular contraction) 12/08/19 19 Syncope and collapse 03/13/2018 Bradycardia on ECG 03/13/2018 Orthostatic hypotension 03/13/2018 Head trauma 03/13/2018 Right lower quadrant abdominal pain 01/24/2013 Encounters Date Type Department Care Team Description 07/08/2024 Telephone [facility] at [address] [phone] Jyoti Juarez MA 07/04/2024 10:15 AM CLAIMS REPRESENTATIVE Office Visit [facility] at [address] [place] [phone] Antonieta Maldonado NP Irregular heart beats (Primary Dx) from Last 3 Months Immunizations Name Administration Dates Next Due DTaP 1998,1998,1998 DTaP 5 Pertussis 01/18/2004,05/05/2003, 9 Hep A, Pediatric 06/12/2011,06/06/2010 Hep B / HiB 1998 Hep B, Adolescent or Pediatric 07/24/1999,1997 HiB 1998 Hib (PRP-T) 07/24/1999 IPV 01/18/2004, 9,1998,06/13 Influenza, Quadrivalent, Spl it, Preservative Free, Intramuscular 05/01/2016 Influenza, Trivalent, Preser vative Free, Intramuscular 05/04/2012,06/12/2011 MMR 05/04/2002,07/24/1999 Meningococcal MCV4P (Menactra) 01/02/2015,2009 Rotavirus Tetravalent 1998 Tdap 06/06/2010 Varicella 12/28/2007,07/24/1999 Surgical History Surgery Date Site/Laterality Comments APPENDECTOMY Medical History Medical History Date Comments Full incontinence of feces Encop resis - (Added by DIANA Conv) Anxiety Depression Family History Medical History Relation Name Comments Multiple sclerosis Mother Multiple Sclerosis - (Added by DIANA Conv) Heart attack Paternal Grandfather Relation Name Status Comments Mother Paternal Grandfather Social History Tobacco Use Types Packs/Day Years Used Date Smoking Tobacco: Every Day Vaping Tobacco Cessation:Ready to Q uit: No; Counseling Given: Yes Alcohol Use Standard Drinks/Week Comments Yes 0 (1 standard drink = 0.6 oz pur e alcohol) social AUDIT-C Answer Date Recorded Frequency of Alcohol Consumption Never 12/07/2018 Average Number of Drinks Not on file 019 Frequency of Binge Drinking Not on file 01/2019 Personal Safety Answer Date Recorded Have you ever been in or are you currently in a harmful physical or emotional relationship or is someone making you feel afraid or unsafe? Denies 05/08/2024 Comments No Sex and Gender Information Value Date Recorded Sex Assigned at Not on file Legal Sex Female 8:43 AM CLAIMS REPRESENTATIVE Gender Identity Not on file Sexual Orientation Not on file Obstetrics History Last Filed Vital Signs Vital Sign Reading Time Taken Comments Blood Pressure 118/90 07/04/2024 10:13 AM CLAIMS REPRESENTATIVE Pulse 72 07/04/2024 10:31 AM CLAIMS REPRESENTATIVE Temperature 36.9 ??C (98.5 ??F) 07/04/2024 10:[address] Respiratory Rate 20 07/04/2024 10:13 AM CLAIMS REPRESENTATIVE Oxygen Saturation 98% 07/04/2024 10:13 AM CLAIMS REPRESENTATIVE Inhaled Oxygen Concentration - - Weight 72.6 kg (160 lb) 07/04/2024 10:13 AM CLAIMS REPRESENTATIVE Height 175.3 cm (5' 9 ) 07/04/2024 10:13 AM CLAIMS REPRESENTATIVE Body Mass Index 23.63 07/04/2024 10:13 AM CLAIMS REPRESENTATIVE Plan of Treatment Health Maintenance Due Date Last Done Comments Cervical Cancer Screening 1998 Depression Screening 1998 Hepatitis C Screening 1998 Pneumococcal vaccine <65 (1 of 2 - PCV) 2004 HPV Vaccines (1 - 3-dose series) 2013 Regular Well Visit/Exam 18-64 2016 DTaP/Tdap/Td Vaccine (7 - Td or Tdap) 06/06/2020 06/06/2010, 01/18/2004, 05/05/2003, Additional history exists Influenza Vaccine (#1) 2024 6, 05/04/2012, 06/12/2011 Varicella Vaccines Completed 12/28/2007, 07/24/1999 Procedures Procedure Name Priority Date/Time Associated Diagnosis Comments COVID-19 POC Routine 07/04/2024 10:43 AM CLAIMS REPRESENTATIVE Irregular heart beats POCT INFLUENZA A/B Routine 07/04/2024 10 :43 AM CLAIMS REPRESENTATIVE Irregular heart beats POCT RAPID STREP Routine 07/04/2024 10:3 6 AM CLAIMS REPRESENTATIVE Irregular heart beats from Last 3 Months Results * COVID-19 POC (07/04/2024 10:43 AM CLAIMS REPRESENTATIVE) Pathologist [facility] COVID-19 Ag POC (BD Veritor) Presumptive Negative Presumptive Negative, Invalid [facility] Nasal 07/04/2024 10:4 3 AM CLAIMS REPRESENTATIVE Antonieta Maldonado NP POINT OF CARE TEST ORDER CHRIS Final Result [address] [phone] * POCT influenza A/B (07/04/2024 10:43 AM CLAIMS REPRESENTATIVE) Pathologist [facility] Rapid Influenza A Ag Negative Negative, Invalid Rapid Influenza B Ag Negative Negative, Invalid Nasal 07/04/2024 10:4 3 AM CLAIMS REPRESENTATIVE Antonieta Maldonado [employer] POINT OF CARE TEST ORDER CHRIS Final Result * POCT rapid strep A (07/04/2024 10:36 AM CLAIMS REPRESENTATIVE) Rapid Strep A, POC Negative Negative Swab 07/04/2024 10:3 6 AM CLAIMS REPRESENTATIVE Antonieta Maldonado NP POINT OF CARE TEST ORDER CHRIS Final Result from Last 3 Months Insurance CIGNA CIGNA [employer] C[employer] [facility] Care Teams Casing Man Relationship Specialty Start Date End Date Marlene Valles MD [phone] [place] [id number] PCP - General Family Medicine 04/19/24 Isidro Ma MD Consulting Physician Cardiology 12/03/18
--- OUTSIDE RECORDS SUMMARY | 2024-09-02 11:03 | XMS_ITS | Referral Summary ---
Author Organization [facility] Virtual Care Address [address] [place] [phone] Phone Care Team Providers Care Coordinator Of Online Programs Name Role Phone Isidro Ma MD Unavailable [phone] Marlene Valles MD Primary Care Provider [phone] Encounters Date Type Department Care Team Description 07/08/2024 Telephone [facility] Medical [facility] [address] [place] [address] Jyoti Juarez MA 07/04/2024 10:15 AM EMERGENCY DISPATCH OPERATOR Office Visit [facility] [address] [place] [address] Antonieta Maldonado NP Irregular heart beats (Primary Dx) from Last 3 Months Allergies No known active allergies Medications buPROPion [...] 03/13/2018 Right lower quadrant abdominal pain 01/24/2013 Immunizations Name Administration Dates Next Due DTaP [...] Rotavirus Tetravalent 1998 Tdap 06/06/2010 Varicella 12/28/2007,07/24/1999 Social History Tobacco Use Types Packs/Day Years [...] on file Legal Sex Female 8:43 AM EMERGENCY DISPATCH OPERATOR Gender Identity Not on file Sexual Orientation Not on file Last Filed Vital Signs Vital Sign Reading Time Taken Comments Blood Pressure 118/90 07/04/2024 10:13 AM EMERGENCY DISPATCH OPERATOR Pulse 72 07/04/2024 10:31 AM EMERGENCY DISPATCH OPERATOR Temperature 36.9 ??C (98.5 ??F) 07/04/2024 10:[address] Respiratory Rate 20 07/04/2024 10:13 AM EMERGENCY DISPATCH OPERATOR Oxygen Saturation 98% 07/04/2024 10:13 AM EMERGENCY DISPATCH OPERATOR Inhaled Oxygen Concentration - - Weight 72.6 kg (160 lb) 07/04/2024 10:13 AM EMERGENCY DISPATCH OPERATOR Height 175.3 cm (5' 9 ) 07/04/2024 10:13 AM EMERGENCY DISPATCH OPERATOR Body Mass Index 23.63 07/04/2024 10:13 AM EMERGENCY DISPATCH OPERATOR Plan of Treatment Not on file Procedures Procedure Name Priority Date/Time Associated Diagnosis Comments COVID-19 POC Routine 07/04/2024 10:43 AM EMERGENCY DISPATCH OPERATOR Irregular heart beats POCT INFLUENZA A/B Routine 07/04/2024 10 :43 AM EMERGENCY DISPATCH OPERATOR Irregular heart beats POCT RAPID STREP Routine 07/04/2024 10:3 6 AM EMERGENCY DISPATCH OPERATOR Irregular heart beats from Last 3 Months Results * COVID-19 POC (07/04/2024 10:43 AM EMERGENCY DISPATCH OPERATOR) COVID-19 Ag POC (BD Veritor) Presumptive Negative Presumptive Negative, Invalid [facility] Nasal 07/04/2024 10:4 3 AM EMERGENCY DISPATCH OPERATOR Antonieta Maldonado [employer] OPERATOR POINT OF CARE TEST ORDER CHRIS Final Result [place] [id number] [id number] * POCT influenza A/B (07/04/2024 10:43 AM EMERGENCY DISPATCH OPERATOR) Rapid Influenza A Ag Negative Negative, Invalid Rapid Influenza B Ag Negative Negative, Invalid Nasal 07/04/2024 10:4 3 AM EMERGENCY DISPATCH OPERATOR Antonieta Maldonado [employer] OPERATOR POINT OF CARE TEST ORDER CHRIS Final Result * POCT rapid strep A (07/04/2024 10:36 AM EMERGENCY DISPATCH OPERATOR) Rapid Strep A, POC Negative Negative Swab 07/04/2024 10:3 6 AM EMERGENCY DISPATCH OPERATOR Antonieta Maldonado [employer] OPERATOR POINT OF CARE TEST ORDER CHRIS Final Result from Last 3 Months Insurance [employer] [facility] [place] [address] [facility] Care Teams Coordinator Of Online Programs Relationship Specialty Start Date End Date Marlene Valles MD [phone] [place] [address] PCP - General Family Medicine 04/19/24 Isidro Ma MD Consulting Physician Cardiology 12/03/18
--- OUTSIDE RECORDS SUMMARY | 2024-09-02 11:03 | XMS_ITS | Clinical Summary ---
Author Organization [facility] Address [address] [place] [address] Phone Care Team Providers Care Marketing Admin Name Role Phone Marlene Valles MD Primary Care Provider [phone] Allergies No known active allergies Medications hydrOXYzine (VISTARIL) 50 MG Capsule 07/16/2023 Active mirtazapine (REMERON) 30 MG Tablet 07/20/2023 Active propranolol (INDERAL) 10 MG Tablet 08/20/2023 Active BuPROPion HCl 200 MG TABLET SR 12 HR TAKE 1 TABLET BY MOUTH DAILY 90 Tablet 1 01/13/2024 Active busPIRone (BUSPAR) 10 MG TabletIndicatio ns:Anxiety and depression Take 1 Tablet by mouth 3 times daily. 270 Tablet 1 03/25/2024 Active metoprolol Succinate (TOPROL-XL) 25 MG TABLET SR 24 HR Take 1 Tablet by mouth daily for 30 days. 30 Tablet 07/04/2024 Active Problems No known active problems Encounters Date Type Department Care Team Description 08/11/2024 2:00 PM POUCH MAKING MACHINE OPERATOR - 08/11/2024 11:59 PM POUCH MAKING MACHINE OPERATOR Hospital [facility] [address] [place] [id number] Roseline Coates APRN, FASHION CONSULTANT Discharge Disposition: Discharged to home or Selfcare 08/11/2024 Travel 07/06/2024 1:30 PM POUCH MAKING MACHINE OPERATOR - 07/06/2024 11:59 PM POUCH MAKING MACHINE OPERATOR Hospital Encounter [facility] Cardiology Services [address] [place] [address] Roseline Coates APRN, FASHION CONSULTANT Discharge Disposition: Discharged to home or Selfcare 07/05/2024 Travel 07/04/2024 10:56 AM POUCH MAKING MACHINE OPERATOR - 07/04/2024 4:15 PM POUCH MAKING MACHINE OPERATOR Emergency [facility] Emergency [address] [facility] [place] [address] Lucille Dunn MD PVC (premature ventricular contraction) Discharge Disposition: Discharged to home or Selfcare 07/04/2024 Travel from Last 3 Months Immunizations Immunization Administration Dates Next Due DTAP VACCINE 1998,1998,1998 DTAP VACCINE, 5 PERTUSSIS AN TIGENS, VACCINE IM 01/18/2004,05/05/2003,07/24/1999 HEP B/HIB Combined Vaccine 1998 HIB Vaccine (PRP-T) 07/24/1999 Hepatitis A Vaccine, Pediatric/adolescent, 2 Dose Schedule 06/12/2011,06/06/2010 Hepatitis B Vaccine, Pediatric/adolescent 07/24/1999,1998 Inactivated Polio Vaccine 01/18/2004,,1998,06/13 Influenza Vaccine 05/04/2012,06/12/2011 Influenza Vaccine, Quadrivalent, PF 05/01/2016 MMR Vaccine 05/04/2002,07/24/1999 Meningococcal Vaccine 01/02/2015,06/06/2010 Rotavirus Vaccine, Tetravalent 1998 TDAP Vaccine 06/06/2010 Varicella Vaccine Live 12/28/2007,07/24/1999 Social History Tobacco Use Types Packs/Day Years Used Date Smoking Tobacco: Never Passive Smoke Exposure: Never Smokeless Tobacco: Never Tobacco Cessation:Counseling Given: Not Answered Alcohol Use Standard Drinks/Week Comments Not Currently 0 (1 standard drink = 0.6 oz pur e alcohol) [facility] Utilities Answer Date Recorded In the past 12 months has [employer], gas, oil, or water [employer] threatened to shut off services in your home? No 03/23/2024 Social Connection and Isolat ion Panel [NHANES] Answer Date Recorded In a typical week, how many times do you talk on the phone with family, friends, or neighbors? More than three times a week 03/23/2024 How often do you get togethe r with friends or relatives? Three times a week 03/23/2024 How often do you attend chur ch or bahai services? Never 03/23/2024 Do you belong to any clubs o r organizations such as orthodox groups, unions, fraternal or athletic groups, or school groups? No 03/23/2024 How often do you attend meet ings of the clubs or organizations you belong to? Patient declined 03/23/2024 Are you , , di vorced, , never , or living with a partner? Never 03/23/2024 AUDIT-C Answer Date Recorded Q1: How often do you have a drink containing alcohol? Never 03/23/2024 Q2: How many drinks containi ng alcohol do you have on a typical day when you are drinking? Patient does not drink Q3: How often do you have si x or more drinks on one occasion? Never 03/23/2024 Overall Financial Resource Strain (CARDIA) Answe r Date Recorded How hard is it for you to pa y for the very basics like food, housing, medical care, and heating? Somewhat hard 03/23/2024 [facility] - Occupational Stress Questionnaire Answer Date Recorded Do you feel stress - tense, restless, nervous, or anxious, or unable to sleep at night because your mind is troubled all the time - these days? Rather much 03/23/2024 Exercise Vital Sign Answer Date Recorde d On average, how many days pe r week do you engage in moderate to strenuous exercise (like a brisk walk)? 1 day 03/23/2024 On average, how many minutes do you engage in exercise at this level? 40 min 03/23/2024 Hunger Vital Sign Answer Date Recorded Within the past 12 months, y ou worried that your food would run out before you got the money to buy more. Sometimes true Within the past 12 months, t he food you bought just didn't last and you didn't have money to get more. Sometimes true PRAPARE - Transportation Answer Date Re corded In the past 12 months, has l ack of transportation kept you from medical appointments or from getting medications? No 03/04 In the past 12 months, has l ack of transportation kept you from meetings, work, or from getting things needed for daily living? Yes 03/23/2024 Housing Stability Vital Sign Answer Thiago e Recorded In the last 12 months, was t here a time when you were not able to pay the mortgage or rent on time? Patient declined 03/23/20 24 In the past 12 months, how m any times have you moved where you were living? 2 03/23/2024 At any time in the past 12 m [facility], were you homeless or living in a long-term (including now)? No 03/23/2024 Comments Unknown Sex and Gender Information Value Date Recorded Sex Assigned at Not on file Legal Sex Female 2:45 AM POUCH MAKING MACHINE OPERATOR Gender Identity Not on file Sexual Orientation Not on file Last Filed Vital Signs Vital Sign Reading Time Taken Comments Blood Pressure 126/75 07/04/2024 3:45 PM POUCH MAKING MACHINE OPERATOR Pulse 66 07/04/2024 3:45 PM POUCH MAKING MACHINE OPERATOR Temperature 36.9 ??C (98.4 ??F) 07/04/2024 11:[address] Respiratory Rate 16 07/04/2024 4:00 PM POUCH MAKING MACHINE OPERATOR Oxygen Saturation 100% 07/04/2024 4:00 PM POUCH MAKING MACHINE OPERATOR Inhaled Oxygen Concentration - - Weight 72.6 kg (160 lb) 07/04/2024 11:00 AM POUCH MAKING MACHINE OPERATOR Height 175.3 cm (5' 9 ) 07/04/2024 11:00 AM POUCH MAKING MACHINE OPERATOR Body Mass Index 23.63 07/04/2024 11:00 AM POUCH MAKING MACHINE OPERATOR Plan of Treatment Health Maintenance Due Date Last Done Comments Human Papillomavirus (HPV) Immunization (1 - 3-dose series) 2013 DTaP/Tdap/Td Immunization (7 - Td or Tdap) 06/06/2020 06/06/2010, 01/18/2004, 05/05/2003, Additional history exists Influenza Immunization (#1) 04/03/202404/04, 05/04/2012, 06/12/2011 SARS-COV-2 Immunization ( season) 2024 Respiratory Syncytial Virus (RSV) Immunization (Adult) (1 - 1-dose 75+ series) 2073 Hepatitis B Immunization Completed 999, 1998, 1998 Meningococcal Immunization (ACWY) Completed 01/02/2015, 06/06/2010 Hepatitis C Virus (HCV) Screening Completed 09/01/2023 Pneumococcal Immunization Combined Aged Out No longer eligible based on patient's age to complete this topic Rotavirus Immunization Aged Out No lo nger eligible based on patient's age to complete this topic Procedures Procedure Name Priority Date/Time Associated Diagnosis Comments ADULT TRANS THORACIC ECHO 2D COMPLETE Routine 08/11/2024 3:06 PM POUCH MAKING MACHINE OPERATOR PVC (premature ventricular contraction) EVENT RECORDER, 30-DAY STAT 07/06/2024 1:53 PM POUCH MAKING MACHINE OPERATOR PVC (premature ventricular contraction) XR CHEST 2 VIEWS STAT 07/04/2024 11:4 3 AM POUCH MAKING MACHINE OPERATOR GOLD TOP TUBE STAT 07/04/2024 11:22 AM POUCH MAKING MACHINE OPERATOR BLUE TOP TUBE STAT 07/04/2024 11:22 AM POUCH MAKING MACHINE OPERATOR THYROID STIMULATING HORMONE (TSH) STAT 07/04/2024 11:22 AM POUCH MAKING MACHINE OPERATOR MAGNESIUM (MG) STAT 07/04/2024 11:22 AM POUCH MAKING MACHINE OPERATOR EXTRA TUBES STAT 07/04/2024 11:22 AM POUCH MAKING MACHINE OPERATOR CBC WITH AUTO DIFFERENTIAL STAT 07/04/2024 11:21 AM POUCH MAKING MACHINE OPERATOR TROPONIN I, HIGH SENSITIVITY (HSTRP) STAT 07/04/2024 11:21 AM POUCH MAKING MACHINE OPERATOR CMP (COMPREHENSIVE METABOLIC PANEL) STAT 07/04/2024 11:21 AM POUCH MAKING MACHINE OPERATOR COMPLETE BLOOD COUNT (CBC) WITH DIFF STAT 07/04/2024 11:21 AM POUCH MAKING MACHINE OPERATOR EKG 12 LEAD STAT 07/04/2024 11:00 AM POUCH MAKING MACHINE OPERATOR RHYTHM STRIP 07/04/2024 12:00 AM POUCH MAKING MACHINE OPERATOR EKG SCAN 07/04/2024 12:00 AM POUCH MAKING MACHINE OPERATOR HEPATITIS C ANTIBODY Routine 09/01/2023 3:53 PM POUCH MAKING MACHINE OPERATOR Screening examination for STD (sexually transmitted disease) from Last 3 Months or Most Recently Relevant to Health Maintenance Results * ADULT TRANS THORACIC ECHO 2D COMPLETE (08/11/2024 3:06 PM POUCH MAKING MACHINE OPERATOR) AV Peak Grad mmHg 7.84 mmHg RESULTING AGENCY Mean Aortic Valve Gradient (MAVG) 4 mmHg RESULTING AGENCY LV end dorian diam cm 4.8 cm RESULTING AGENCY LV end sys diam cm 3.3 cm RESULTING AGENCY Aortic Root Diam cm 2.9 cm RESULTING AGENCY LA vol index ml/m2 24 ml/m2 RESULTING AGENCY LVOT Peak Jet m/sec 1.14 m/sec RESULTING AGENCY AV Peak Jet m/sec 1.4 m/sec RESULTING AGENCY E/A Ratio 1.4 RESULTING AGENCY E/E' 5.3 RESULTING AGENCY AV Area (VTI) cm2 2.23 cm2 RESULTING AGENCY SEPTUM DIASTOLIC CM 0.8 cm RESULTING AGENCY PW DIASTOLIC CM 0.8 cm RESU LTING AGENCY LA VOLUME 46 ml RESULTING AGENCY Anatomical Region Laterality Modality CARDIO N/A Ultrasound Narrative 08/11/2024 3:49 PM POUCH MAKING MACHINE OPERATOR Transthoracic Echocardiography Report (TTE) Patient name ? YOLANDA JARAMILLO N ? 2000 Patient ID (UPI) ? [id number] ? Study Date08/11/2024 Type of Study: TTE procedure: Adult Trans Thoracic Echo 2D Complete. Conclusions Summary The left ventricle is normal in size. Wall thickness is normal. LV function is normal. There are no regional wall motion abnormalities. LV EF of 55-60%. Normal diastolic function. Findings Mitral Valve The mitral valve is normal. There is no evidence of mitral stenosis. Trace mitral regurgitation is present. Aortic Valve The aortic valve is trileaflet with normal leaflet excursion. There is no evidence of aortic valve stenosis. There is no significant aortic valve insufficiency. Tricuspid Valve The tricuspid valve is normal. There is no evidence of tricuspid stenosis. Trace tricuspid valve regurgitation. Insufficient TR jet to estimate PASP. Pulmonic Valve The pulmonic valve structure appears normal. There is no evidence of pulmonic stenosis. There is no significant pulmonic valve regurgitation. Left Atrium The left atrium size is normal. Left Ventricle The left ventricle is normal in size. Wall thickness is normal. LV function is normal. There are no regional wall motion abnormalities. LV EF of 55-60%. Normal diastolic function. Right Atrium The right atrium size is normal. Right Ventricle Normal right ventricular cavity size and normal systolic function. Pericardial Effusion The pericardium is normal. There is no pericardial effusion visualized. Miscellaneous Aortic root and proximal ascending aorta are normal in size. Atrial septum appears intact. IVC is normal in size and respiratory response. Aortic arch appears normal. Valves Mitral Valve Peak E-Wave: 0.89 m/s Peak A-Wave: 0.63 m/s ?Deceleration Time: 239 msec Peak Gradient: 3.21 mmHg Tissue Doppler E' Velocity: 0.11 m/s ?E/E':5.3 E/A Ratio: 1.4 ? E/Lat E': 5.3 ?E/Med E':8.1 Aortic Valve Area (continuity): 2.23 cm^2 ? Mean Velocity: 0.95 m/s Area (VTI):2.23 cm^2 ? Mean Gradient: 4 mmHg Peak Velocity: 1.40 m/s ?AV VTI: 29.7 cm Peak Gradient: 7.84 mmHg Tricuspid Valve Peak E-Wave: 0.70 m/s Peak Gradient: 2 mmHg Pulmonic Valve Peak Velocity: 1.08 m/s ?Mean Velocity: 0.74 m/s Peak Gradient: 4.67 mmHg ? Mean Gradient: 3 mmHg LVOT Peak Velocity: 1.14 m/s ? Mean Velocity: 0.73 m/s Peak Gradient: 5 mmHg ? Mean Gradient: 3 mmHg LVOT Diameter: 2 cm ? LVOT VTI: 21.1 cm Stroke Volume: 66 ml ?Stroke Volume Index: 35.11 ml/m^2 Structures Left Ventricle Diastolic Dimension: 4.8 cm ? Systolic Dimension: 3.3 cm Septum Diastolic: 0.8 cm PW Diastolic: 0.8 cm ?Systolic Length: 19.2 cm Diastolic Length: 31.6 cm EF Calculated: 56.76% RWT: 0.33 ? LV EDV: 99.9 ml ? LV EDV Index: 53 m^2 FS: 31.25 % ? LV ESV: 43.2 ml LV Length: 9.12 cm ?LV ESV Index: 23 m^2 LVOT Diameter: 2 cm Global Longitudinal Strain:-13.8 Right Ventricle Tissue Doppler RV S': 14.3 TAPSE: 2.19 cm Left Atrium LA Systolic Pressure: 8.67 mmHg ? LA Area: 17.1 cm^2 ? LA Volume: 46 ml ? LA Index: 24ml/m^2 Right Atrium ?RA Area: 15.4 cm^2 Great Vessels Aorta ? Ascending Aorta: 2.5 cm Aorta Root:2.9 cm ? Ascending Aorta Index:1.33 cm/m^2 Demographics Age ?24 ? Gender ?Female Race ?Height ?69.02 in. ? Weight ?160.01 lbs. ? BMI (BSA) ? 23.62 kg/m^2 (1.88 ? m^2) Cleaning Crew Member Interpreting ? Hall ?Referring Physician ?Keith ? Physician Procedure Note Keith Hall MD - 08/11/2024 Transthoracic Echocardiography Report (TTE) Patient name YOLANDA Hannah.O.B. 2000 Patient ID ([facility]) [id number] Study Date08/11/2024 Type of Study: TTE procedure: Adult Trans Thoracic Echo 2D Complete. Conclusions Summary The left ventricle is normal in size. Wall thickness is normal. LV function is normal. There are no regional wall motion abnormalities. LV EF of 55-60%. Normal diastolic function. Findings Mitral Valve The mitral valve is normal. There is no evidence of mitral stenosis. Trace mitral regurgitation is present. Aortic Valve The aortic valve is trileaflet with normal leaflet excursion. There is no evidence of aortic valve stenosis. There is no significant aortic valve insufficiency. Tricuspid Valve The tricuspid valve is normal. There is no evidence of tricuspid stenosis. Trace tricuspid valve regurgitation. Insufficient TR jet to estimate PASP. Pulmonic Valve The pulmonic valve structure appears normal. There is no evidence of pulmonic stenosis. There is no significant pulmonic valve regurgitation. Left Atrium The left atrium size is normal. Left Ventricle The left ventricle is normal in size. Wall thickness is normal. LV function is normal. There are no regional wall motion abnormalities. LV EF of 55-60%. Normal diastolic function. Right Atrium The right atrium size is normal. Right Ventricle Normal right ventricular cavity size and normal systolic function. Pericardial Effusion The pericardium is normal. There is no pericardial effusion visualized. Miscellaneous Aortic root and proximal ascending aorta are normal in size. Atrial septum appears intact. IVC is normal in size and respiratory response. Aortic arch appears normal. Valves Mitral Valve Peak E-Wave: 0.89 m/s Peak A-Wave: 0.63 m/s Deceleration Time: 239 msec Peak Gradient: 3.21 mmHg Tissue Doppler E' Velocity: 0.11 m/s E/E':5.3 E/A Ratio: 1.4 E/Lat E': 5.3 E/Med E':8.1 Aortic Valve Area (continuity): 2.23 cm^2 Mean Velocity: 0.95 m/s Area (VTI):2.23 cm^2 Mean Gradient: 4 mmHg Peak Velocity: 1.40 m/s AV VTI: 29.7 cm Peak Gradient: 7.84 mmHg Tricuspid Valve Peak E-Wave: 0.70 m/s Peak Gradient: 2 mmHg Pulmonic Valve Peak Velocity: 1.08 m/s Mean Velocity: 0.74 m/s Peak Gradient: 4.67 mmHg Mean Gradient: 3 mmHg LVOT Peak Velocity: 1.14 m/s Mean Velocity: 0.73 m/s Peak Gradient: 5 mmHg Mean Gradient: 3 mmHg LVOT Diameter: 2 cm LVOT VTI: 21.1 cm Stroke Volume: 66 ml Stroke Volume Index: 35.11 ml/m^2 Structures Left Ventricle Diastolic Dimension: 4.8 cm Systolic Dimension: 3.3 cm Septum Diastolic: 0.8 cm PW Diastolic: 0.8 cm Systolic Length: 19.2 cm Diastolic Length: 31.6 cm EF Calculated: 56.76% RWT: 0.33 LV EDV: 99.9 ml LV EDV Index: 53 m^2 FS: 31.25 % LV ESV: 43.2 ml LV Length: 9.12 cm LV ESV Index: 23 m^2 LVOT Diameter: 2 cm Global Longitudinal Strain:-13.8 Right Ventricle Tissue Doppler RV S': 14.3 TAPSE: 2.19 cm Left Atrium LA Systolic Pressure: 8.67 mmHg LA Area: 17.1 cm^2 LA Volume: 46 ml LA Index: 24ml/m^2 Right Atrium RA Area: 15.4 cm^2 Great Vessels Aorta Ascending Aorta: 2.5 cm Aorta Root:2.9 cm Ascending Aorta Index:1.33 cm/m^2 Demographics Age 24 Gender Female Race Height 69.02 in. Weight 160.01 lbs. BMI (BSA) 23.62 kg/m^2 (1.88 m^2) Cleaning Crew Member Interpreting Isabel Referring Physician Keith Physician Roseline Coates APRN, CNP IMG ECHO ORDER CHRIS Final Result * EVENT RECORDER, 30-DAY (07/06/2024 1:53 PM POUCH MAKING MACHINE OPERATOR) Anatomical Region Laterality Modality CARDIO N/A Electrocardiogra phy Narrative 08/09/2024 2:55 PM POUCH MAKING MACHINE OPERATOR HOLTER MONITOR REPORT: Patient name: Pretty Pretty Patient : ??2000 Patient Age: 24 y.o. Indication: Arrhythmias Requesting provider: Roseline Coates CNP Study Duration: Prescribed period 30 days, Interpretable data 12 days 6 hours 24 mins Summary: Minimum HR: 47 BPM Average HR: 80 BPM Maximum HR 174 BPM 1. ??Atrial ectopy / premature atrial complexes (PAC) ??- ??755 supraventricular ectopic beats occurred (<1 % of complexes) mainly as isolated ectopy. 2. ??Ventricular ectopy / premature ventricular complexes (PVC) ??- ??[id number] ventricular ectopic beats occurred (16 % of complexes) mainly as isolated ectopy. 3. ??No significant bradycardia or pauses occurred. 4. ??Atrial fibrillation/flutter was not detected Manually Triggered events: ??There were 8 manually triggered events. ?? During these triggered episodes, the patient reported fatigue and dizziness and sinus rhythm with PVCs. Other tracings mainly demonstrated sinus rhythm Conclusion: 16% PVC burden without sustained arrhythmias. Procedure Note Keith Hall MD - 08/09/2024 HOLTER MONITOR REPORT: Patient name: Pretty Pretty Patient : 2000 Patient Age: 24 y.o. Indication: Arrhythmias Requesting provider: Roseline Coates CNP Study Duration: Prescribed period 30 days, Interpretable data 12 days 6 hours 24 mins Summary: Minimum HR: 47 BPM Average HR: 80 BPM Maximum HR 174 BPM 1. Atrial ectopy / premature atrial complexes (PAC) - 755supraventricular ectopic beats occurred (<1 % of complexes) mainly asisolated ectopy. 2. Ventricular ectopy / premature ventricular complexes (PVC) - [id number] ectopic beats occurred (16 % of complexes) mainly as isolatedectopy. 3. No significant bradycardia or pauses occurred. 4. Atrial fibrillation/flutter was not detected Manually Triggered events: There were 8 manually triggered events.During these triggered episodes, the patient reported fatigue anddizziness and sinus rhythm with PVCs. Other tracings mainly demonstrated sinus rhythm Conclusion: 16% PVC burden without sustained arrhythmias. Roseline Coates APRN, DESIREE IMG ECG ORDERA BLES Final Result * XR CHEST 2 VIEWS (07/04/2024 11:43 AM POUCH MAKING MACHINE OPERATOR) Anatomical Region Laterality Modality Chest N/A Digital Radiogra phy 07/04/2024 11:5 1 AM POUCH MAKING MACHINE OPERATOR Impressions 07/04/2024 11:54 AM POUCH MAKING MACHINE OPERATOR IMPRESSION: No acute cardiopulmonary abnormality. Narrative 07/04/2024 11:54 AM POUCH MAKING MACHINE OPERATOR EXAM DESCRIPTION: XR CHEST 2 VIEWS REASON FOR STUDY: chest tightness x 2 days ?? TECHNIQUE: Frontal and lateral ??radiographic view(s) of the chest. COMPARISON: None FINDINGS: The heart, mediastinum, and pulmonary vasculature are grossly unremarkable. ??There is no definite evidence of a pneumothorax. ??There is no definite evidence of focal consolidation or pleural effusion. The osseous structures are acutely grossly unremarkable. THIS IS AN ELECTRONICALLY VERIFIED FINAL REPORT 07/04/2024 11:51 AM - Electronically signed by ??Vick Link D.O. PS: PS D: ??07/04/2024 11:51 AM T: ??07/04/2024 11:51 AM Report ID: [id number] Reading Location: ??[id number] Procedure Note Vick Link DO - 07/04/2024 EXAM DESCRIPTION: XR CHEST 2 VIEWS REASON FOR STUDY: chest tightness x 2 days TECHNIQUE: Frontal and lateral radiographic view(s) of the chest. COMPARISON: None FINDINGS: The heart, mediastinum, and pulmonary vasculature are grossly unremarkable. There is no definite evidence of a pneumothorax. There is no definite evidence of focal consolidation or pleural effusion. The osseous structures are acutely grossly unremarkable. THIS IS AN ELECTRONICALLY VERIFIED FINAL REPORT 07/04/2024 11:51 AM - Electronically signed by Vick Link D.O. PS: PS Report ID: [id number] Reading Location: [place] [id number] IMPRESSION: No acute cardiopulmonary abnormality. Lucille Dunn MD IMG DIAGNOSTIC ORDERABLES Fin al Result * Gold Top Tube (07/04/2024 11:22 AM POUCH MAKING MACHINE OPERATOR) Blood No Phlebotomy Charged / Unknown 07/04/2024 11:22 AM POUCH MAKING MACHINE OPERATOR 07/04/2024 11:35 AM POUCH MAKING MACHINE OPERATOR Lucille Dunn MD CHEMISTRY ORDERABLES Final Re sult Performing Organization Address City/[facility]/ZIP Co de Phone Number [facility] [place] [address] * Blue Top Tube (07/04/2024 11:22 AM POUCH MAKING MACHINE OPERATOR) Blood No Phlebotomy Charged / Unknown 07/04/2024 11:22 AM POUCH MAKING MACHINE OPERATOR 07/04/2024 11:35 AM POUCH MAKING MACHINE OPERATOR Lucille Dunn MD HEMATOLOGY ORDERABLES Final R esult Performing Organization Address City/[facility]/ZIP Co de Phone Number [facility] [place] [address] * Thyroid Stimulating Hormone (TSH) [id number] (07/04/2024 11:22 AM POUCH MAKING MACHINE OPERATOR) TSH 1.937 0.300 - 5.000 mIU/L 07/04/2024 2:38 PM POUCH MAKING MACHINE OPERATOR [facility] Blood No Phlebotomy Charged / Unknown 07/04/2024 11:22 AM POUCH MAKING MACHINE OPERATOR 07/04/2024 11:35 AM POUCH MAKING MACHINE OPERATOR Lucille Dunn MD CHEMISTRY ORDERABLES Final Re sult [facility] [place] [address] * Magnesium (Mg) [id number] (07/04/2024 11:22 AM POUCH MAKING MACHINE OPERATOR) [facility] MAGNESIUM 1.9 1.6 - 2.6 mg/dL 07/04/2024 2:18 PM POUCH MAKING MACHINE OPERATOR [facility] Blood No Phlebotomy Charged / Unknown 07/04/2024 11:22 AM POUCH MAKING MACHINE OPERATOR 07/04/2024 11:35 AM POUCH MAKING MACHINE OPERATOR Lucille Dunn MD CHEMISTRY ORDERABLES Final Re sult Performing Organization Address [facility] Co de Phone Number [facility] [place] [address] * TROPONIN I, HIGH SENSITIVITY (HSTRP) (07/04/2024 11:21 AM POUCH MAKING MACHINE OPERATOR) [facility] TROPONIN I, HIGH SENSITIVITY- BLAKELY <3 <=14 ng/L 07/04/2024 12:09 PM POUCH MAKING MACHINE OPERATOR [facility] Comment: High-sensitivity troponin I results are reported in ng/L making the result appear to be 1,000 times higher than the contemporary troponin I value which is reported in ng/ml. Results from [place]. Blood Venipuncture / Unknown 07/04/2024 11:21 AM POUCH MAKING MACHINE OPERATOR 07/04/2024 11:33 AM POUCH MAKING MACHINE OPERATOR Lucille Dunn MD CHEMISTRY ORDERABLES Final Re sult Performing Organization Address City/[facility]/ZIP Co de Phone Number [facility] [place] [address] * (ABNORMAL) CBC with Auto Differential (07/04/2024 11:21 AM POUCH MAKING MACHINE OPERATOR) [facility] WBC 5.06 4.00 - 12.00 10(3)/mcL 07/04/2024 11:44 AM [facility] RBC 4.33 3.80 - 5.30 10(6)/[facility] 07/04/2024 11:44 AM [facility] HEMOGLOBIN (HGB) 12.8 12.0 - 15.8 g/dL 07/04/2024 11:44 AM [facility] HEMATOCRIT (HCT) 38.0 36.0 - 47.0 % 07/04/2024 11:44 AM [facility] MCV 87.8 82.0 - 96.0 fL 07/04/2024 11:44 AM [facility] MCH 29.6 26.0 - 34.0 pg 07/04/2024 11:44 AM [facility] MCHC 33.7 31.0 - 36.0 g/dL 07/04/2024 11:44 AM [facility] PLATELET COUNT 238 140 - 440 10(3)/[facility] 07/04/2024 11:44 AM [facility] LAB RDW 12.3 11.8 - 15.5 % 07/04/2024 11:44 AM [facility] MPV 10.6 9.7 - 12.4 fL 07/04/2024 11:44 AM [facility] NEUTROPHILS 69.8 47.0 - 73.0 % 07/04/2024 11:44 AM [facility] LYMPHOCYTES 22.3 18.0 - 42.0 % 07/04/2024 11:44 AM [facility] MONOCYTES 6.5 4.0 - 12.0 % 07/04/2024 11:44 AM [facility] EOSINOPHILS 1.0 0.0 - 5.0 % 07/04/2024 11:44 AM [facility] BASOPHILS 0.4 0.0 - 1.0 % 07/04/2024 11:44 AM [facility] ABSOLUTE NEUTROPHILS 3.53 1.60 - 7.70 10(3)/[facility] 07/04/2024 11:44 AM POUCH MAKING MACHINE OPERATOR [facility] ABSOLUTE LYMPHOCYTES 1.13(L) 1.30 - 3.20 10(3)/[facility] 07/04/2024 11:44 AM POUCH MAKING MACHINE OPERATOR [facility] ABSOLUTE MONOCYTES 0.33 0.20 - 1.00 10(3)/[facility] 07/04/2024 11:44 AM POUCH MAKING MACHINE OPERATOR [facility] ABSOLUTE EOSINOPHIL 0.05 0.00 - 0.40 10(3)/[facility] 07/04/2024 11:44 AM POUCH MAKING MACHINE OPERATOR [facility] ABSOLUTE BASOPHILS 0.02 0.00 - 0.10 10(3)/[facility] 07/04/2024 11:44 AM [facility] NRBC PER 100 WBC 0 07/04/20 11:44 AM [facility] Blood Venipuncture / Unknown 07/04/2024 11:21 AM POUCH MAKING MACHINE OPERATOR 07/04/2024 11:33 AM POUCH MAKING MACHINE OPERATOR us Lucille Dunn MD HEMATOLOGY ORDERABLES Final R esult [facility] [address] [place] [address] * (ABNORMAL) Comprehensive Metabolic Panel (Cmp) [id number] (07/04/2024 11:21 AM POUCH MAKING MACHINE OPERATOR) SODIUM 137 136 - 145 mmol/L 07/04/2024 12:06 PM [facility] POTASSIUM 3.6 3.5 - 5.1 mmol/L 07/04/2024 12:06 PM [facility] CHLORIDE 102 98 - 107 mmol/L 07/04/2024 12:06 PM [facility] CO2, VENOUS 23 22 - 30 mmol/L 07/04/2024 12:06 PM [facility] ANION GAP 15.6 <18.0 mmol/L 07/04/2024 12:06 PM [facility] GLUCOSE 108(H) 70 - 99 mg/dL 07/04/2024 12:06 PM [facility] BUN 8 5 - 18 mg/dL 07/04/2024 12:06 PM [facility] CREATININE, BLOOD 0.84 0.60 - 1.00 mg/dL 07/04/2024 12:06 PM [facility] BUN/CREATININE RATIO 10(L) 12 - 20 ratio 07/04/2024 12:06 PM [facility] TOTAL PROTEIN 6.7 6.3 - 8.2 g/dL 07/04/2024 12:06 PM [facility] ALBUMIN 4.3 3.5 - 5.0 g/dL 07/04/2024 12:06 PM [facility] A/G RATIO 1.8 1.0 - 2.2 07/04/2024 12:06 PM [facility] CALCIUM 9.6 8.7 - 10.5 mg/dL 07/04/2024 12:06 PM [facility] T BILI 1.2 0.2 - 1.2 mg/dL 07/04/2024 12:06 PM [facility] SGOT (AST) 12 5 - 34 U/L 07/04/2024 12:06 PM [facility] SGPT (ALT) 17 0 - 55 U/L 07/04/2024 12:06 PM [facility] ALKALINE PHOSPHATASE 41 40 - 150 U/L 07/04/2024 12:06 PM [facility] GFR, ESTIMATED >60 >=60 07/04/2024 12:06 PM [facility] Comment: Creatinine Clearance is the preferred criteria for selecting drug dose adjustments in renally impaired patients. ??The GFR is provided as additional pertinent clinical information. GFR is reported in mL/min/1.73 sq m. Calculation based on the Chronic Kidney Disease Epidemiology Collaboration (CKD- EPI) equation refit without adjustment for race. GFR, EST. >60 >=60 024 12:06 PM [facility] GFR, EST. NONAFRICAN >60 >=60 07/04/2024 12:06 PM POUCH MAKING MACHINE OPERATOR [facility] Blood Venipuncture / Unknown 07/04/2024 11:21 AM POUCH MAKING MACHINE OPERATOR 07/04/2024 11:33 AM POUCH MAKING MACHINE OPERATOR us Lucille Dunn MD CHEMISTRY ORDERABLES Final Re sult Performing Organization Address City/[facility]/ZIP Co de Phone Number [facility] [address] [place] [address] * EKG 12 LEAD (07/04/2024 11:00 AM POUCH MAKING MACHINE OPERATOR) Ventricular Rate 77 BPM EXTERNAL EKG Atrial Rate 77 BPM EXTERNAL EKG P-R Interval 130 ms EXTERNAL EKG QRS Duration 84 ms EXTERNAL EKG Q-T Duration 382 ms EXTERNAL EKG QTC CALCULATION 432 ms EXTERNAL EKG P Kevin 32 degrees EXTERNAL EKG R Kevin 29 degrees EXTERNAL EKG T Kevin 30 degrees EXTERNAL EKG 07/04/2024 11:0 0 AM POUCH MAKING MACHINE OPERATOR Impressions EXTERNAL EKG - 07/09/2024 12:01 PM POUCH MAKING MACHINE OPERATOR Sinus rhythm with frequent premature ventricular complexes Otherwise normal ECG No previous ECGs available Confirmed by Lynn Rushing ([id number]) on 07/09/2024 12:01:22 PM Narrative Procedure Note Lynn Rushing MD - 07/09/2024 IMPRESSION: Sinus rhythm with frequent premature ventricular complexes Otherwise normal ECG No previous ECGs available Confirmed by Lynn Rushing ([id number]) on 07/09/2024 12:01:22 PM us Lucille Dunn MD IMG ECG ORDERABLES Final Resu lt Performing Organization Address City/[facility]/ZIP Co de Phone Number EXTERNAL EKG * RHYTHM STRIP (07/04/2024 12:00 AM POUCH MAKING MACHINE OPERATOR) 07/04/2024 us Provider Scan IMG ECG ORDERABLES Final Result RESULTING AGENCY * EKG SCAN (07/04/2024 12:00 AM POUCH MAKING MACHINE OPERATOR) 07/04/2024 us Provider Scan IMG ECG ORDERABLES Final Result RESULTING AGENCY * HEPATITIS C ANTIBODY (09/01/2023 3:53 PM POUCH MAKING MACHINE OPERATOR) hepatitis C antibody 0.08 <1 S/[facility] ARCH [id number] B 09/02/2023 4:47 PM POUCH MAKING MACHINE OPERATOR [facility] Comment: Signal/Cutoff ratio ??< 0.79 is Nondetected Signal/Cutoff ratio 0.80-0.99 is Grayzone Signal/Cutoff ratio > 0.99 is Detected Supplemental assays are recommended if signal/cutoff ratio is >/=1.00. ??Signal/cutoff ratio result >/= 5.00 is 97% predictive of positivity for recombinant immunoblot assay (RIBA) and will be reported to the [place] Department of Public Health as required. Blood Venipuncture / Unknown 09/01/2023 3:53 PM POUCH MAKING MACHINE OPERATOR 09/01/2023 3:53 PM POUCH MAKING MACHINE OPERATOR Marlene Valles MD CHEMISTRY ORDERABLES Final Result [facility] [address] [place] [address], from Last 3 Months or Most Recently Relevant to Health Maintenance Insurance MEDICAID [employer] Care Teams Marketing Admin Relationship Specialty Start Date End Date Marlene Valles MD [address] [place] [address] PCP - General Family Medicine 09/01/23
--- NOTE | 2024-09-02 11:18 | PC.NURSE ---
standard regular diet lunch tray ordered
[2024-09-02 11:51] LABS: Ethanol 136 mg/dL (<10)
[2024-09-02 11:55] LABS: Amphetamine Screen Urine Negative (Negative); Barbiturate Screen Urine Negative (Negative); Benzodiazepines Screen Urine Negative (Negative); Cannabinoid Screen Urine Negative (Negative); Cocaine Screen Urine Negative (Negative); Methadone Screen Urine Negative (Negative); Opiate Screen Urine Negative (Negative); Phencyclidine Screen Urine Negative (Negative)
== END 2024-09-02 13:08 | disposition home or self-care (01) ==
PROVIDERS: Physician Assistant; Emergency Provider Emergency Medicine
DX: F10.10 Alcohol abuse, uncomplicated (principal); Y90.6 Blood alcohol level of 120-199 mg/100 ml
CPT/HCPCS: 36415; 71046; 80053; 80307; 81025; 82077; 85025; 93005; 99284

== ENCOUNTER 2025-04-18 13:24 | Emergency (ER) | payer SELFPAY ==
--- NOTE | ~2025-04-18 | CT_ITS ---
EXAM: CT brain wo con - 04/18/2025 13:58 CDT History: 25 years old Female with head injury COMPARISON: None available. PROCEDURE: CT of the head without contrast. Axial, sagittal and coronal reformatted planes were evaluated. Automatic exposure control was used for this study. FINDINGS: BRAIN PARENCHYMA: No acute hemorrhage. No mass effect or herniation. Rivera-white matter differentiation is maintained. Normal appearance of cortex. VENTRICLES/ EXTRA-AXIAL SPACES: No hydrocephalus or extra-axial fluid collection. EXTRACRANIAL STRUCTURES: No calvarial fracture. IMPRESSION: No evidence for acute intracranial hemorrhage or calvarial fracture. Reviewed, dictated and finalized at location N.
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
[2025-04-18 13:35] VITALS: BP 121/59; PULSE 77; RESP 17; TEMP 36.8; O2SAT 100
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
--- OUTSIDE RECORDS SUMMARY | 2025-04-18 15:02 | XMS_ITS | Clinical Summary ---
Author Organization [facility] [place] Address [address] [place] [address] Phone Care Team Providers Care Smoked Meat Preparer Name Role Phone Marlene Valles MD Primary Care Provider [phone] Allergies No known active allergies Medications hydrOXYzine (VISTARIL) 50 MG Capsule 07/16/2023 Active mirtazapine (REMERON) 30 MG Tablet 07/20/2023 Active propranolol (INDERAL) 10 MG Tablet 08/20/2023 Active BuPROPion HCl 200 MG TABLET SR 12 HR TAKE 1 TABLET BY MOUTH DAILY 90 Tablet 1 01/13/2024 Active busPIRone (BUSPAR) 10 MG TabletIndication s:Anxiety and depression Take 1 Tablet by mouth 3 times daily. 270 Tablet 1 03/25/2024 Active Active Problems No known active problems Encounters Date Type Department Care Team Description 03/10/[address] [facility] - Primary Care - [place] [address] [place] [address] Marlene Valles MD Patient Outreach from Last 3 Months Immunizations Immunization Administration [...] drink = 0.6 oz pur e alcohol) [facility] [employer] Answer Date Recorded In the past 12 months has [employer], [employer], oil, or water [employer] threatened to shut off services in your home? No 03/23/2024 Social Connection and Isolation Panel Answer Date Recorded In a typical week, how many times do you talk on the phone with family, friends, or neighbors? More than three times a week 03/23/2024 How often do you get togethe r with friends or relatives? Three times a week 03/23/2024 How often do you attend chur or mormon services? Never 03/23/2024 Do you belong to any clubs o r organizations such as religious groups, unions, fraternal or athletic groups, or [...] medical care, and heating? Somewhat hard 03/23/2024 [facility] [place] of Occupat ional Health - Occupational Stress [...] any time in the past 12 m [facility], were you homeless or living in a long-term (including now)? No 03/23/2024 Comments Unknown Sex and Gender Information Value Date Recorded Sex Assigned at Not on file Legal Sex Female 2:45 AM BOBBIN HANDLER Gender Identity Not on file Sexual Orientation Not on file Last Filed Vital Signs Vital Sign Reading Time Taken Comments Blood Pressure 126/75 07/04/2024 3:45 PM BOBBIN HANDLER Pulse 66 07/04/2024 3:45 PM BOBBIN HANDLER Temperature 36.9 C (98.4 F) 07/04/2024 11:05 AM BOBBIN HANDLER Respiratory Rate 16 07/04/2024 4:00 PM BOBBIN HANDLER Oxygen Saturation 100% 07/04/2024 4:00 PM BOBBIN HANDLER Inhaled Oxygen Concentration - - Weight 72.6 kg (160 lb) 07/04/2024 11:00 AM BOBBIN HANDLER Height 175.3 cm (5' 9) 07/04/2024 11:00 AM BOBBIN HANDLER Body Mass Index 23.63 07/04/2024 11:00 AM BOBBIN HANDLER Plan of Treatment Health Maintenance Due Date Last Done Comments Pap Smear 2019 DTaP/Tdap/Td Immunization (7 - Td or Tdap) 06/06/2020 06/06/2010, 01/18/2004, 05/05/2003, Additional history exists Influenza Immunization (#1) 04/03/202504/04, 05/04/2012, 06/12/2011 SARS-COV-2 Immunization ( season) 2025 Human Papillomavirus (HPV) Immunization (1 - 3-dose SCDM series) 2025 Respiratory Syncytial Virus (RSV) Immunization (Adult) (1 [...] Procedure Name Priority Date/Time Associated Diagnosis Comments HEPATITIS C ANTIBODY Routine 09/01/2023 3:53 PM BOBBIN HANDLER Screening examination for STD (sexually transmitted disease) from Last 3 Months or Most Recently Relevant to Health Maintenance Results * HEPATITIS C ANTIBODY (09/01/2023 3:53 PM BOBBIN HANDLER) hepatitis C antibody 0.08 <1 S/CO [facility] ARCH [id number] B 09/02/2023 4:47 PM BOBBIN HANDLER [facility] Comment: Signal/Cutoff ratio < 0.79 is Nondetected Signal/Cutoff ratio 0.80-0.99 is Grayzone Signal/Cutoff ratio > 0.99 is Detected Supplemental assays are recommended if signal/cutoff ratio is >/=1.00. Signal/cutoff ratio result >/= 5.00 is 97% predictive of positivity for recombinant immunoblot assay (RIBA) and will be reported to the [place] Department of Public Health as required. Blood Venipuncture / Unknown 09/01/2023 3:53 PM BOBBIN HANDLER 09/01/2023 3:53 PM BOBBIN HANDLER us Marlene Valles MD CHEMISTRY ORDERABLES Final Result [facility] [address] [place] [address], from Last 3 Months or Most Recently Relevant to Health Maintenance Insurance MEDICAID [employer] Care Teams Smoked Meat Preparer Relationship Specialty Start Date End Date Marlene Valles MD [address] [place] [address] PCP - General Family Medicine 09/01/23
--- OUTSIDE RECORDS SUMMARY | 2025-04-18 15:02 | XMS_ITS | Clinical Summary ---
Author Organization [facility] Virtual Care Address [address] [place] [address] Phone Care Team Providers Care Line Out Worker Name Role Phone Isidro Ma MD Unavailable [phone] Marlene Valles MD Primary Care Provider [phone] Allergies No known active allergies Medications buPROPion [...] 3 (three) times a day 4 Active cyclobenzaprine (FLEXERIL) 5 mg tabletIndicatio ns:Cervical strain, acute, initial encounter,Foot sprain, left, initial encounter Take 1 tablet (5 mg total) by mouth 3 (three) times a day as needed (Take as directed to relax muscles) Collaborating physician Marcin Abraham MD 20 tablet 4 Active Additional Information Patient not taking.Reported on 04/18/2025 metoprolol XL (TOPROL-XL) 25 mg extended release tablet 4 Active azithromycin (ZITHROMAX) 250 mg tabletIndicatio ns:Upper respiratory tract infection, unspecified type Take 2 tablets the first day, then 1 tablet daily for 4 days. 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 PVC (premature ventricular contraction) 12/08/19 Syncope and collapse 03/13/2018 Bradycardia on ECG 03/13/2018 Orthostatic hypotension 03/13/2018 Head trauma 03/13/2018 Right lower quadrant abdominal pain 01/24/2013 Encounters Date Type Department Care Team Description 04/18/2025 11:45 AM CDT Office Visit [facility] at [address] [address] Xiomara Musa NP Head trauma, initial encounter (Primary Dx); Acute intractable headache, unspecified headache type; Nausea; Vision changes from Last 3 Months Immunizations Immunization Administration Dates Next Due DTaP 1998,1998,1998 DTaP [...] of feces Encop resis - (Added by TW Conv) Anxiety Depression Family History Medical History Relation Name Comments Multiple sclerosis Mother Multiple Sclerosis - (Added by TW Conv) Heart attack Paternal Grandfather Relation Name [...] on file Legal Sex Female 8:43 AM DIRECTOR TRANSPORTATION Gender Identity Not on file Sexual Orientation [...] Mass Index 27.22 04/18/2025 12:03 PM CDT Plan of Treatment Health Maintenance Due Date Last Done Comments Cervical Cancer Screening 1998 Depression Screening 1998 Hepatitis C Screening 1998 Regular Well Visit/Exam 18-64 2016 Pneumococcal vaccine <65 (1 of 2 - PCV) 2017 DTaP/Tdap/Td Vaccine (7 - Td or Tdap) 06/06/2020 06/06/2010, 01/18/2004, 05/05/2003, Additional history exists Influenza Vaccine (#1) 2025 6, 05/04/2012, 06/12/2011 HPV Vaccines (1 - 3-dose SCD M series) 2025 Hepatitis B Screening Completed 07/24/1999 , 1998, 1998 Varicella Vaccines Completed 12/28/2007, 07/24/1999 Insurance [employer] HE[employer]CARE CIG HEALTHCARE Care Teams Line Out Worker Relationship Specialty Start Date End Date Marlene Valles MD [address] [place] [address] PCP - General Family Medicine 04/19/24 Isidro Ma MD Consulting Physician Cardiology 12/03/18
--- OUTSIDE RECORDS SUMMARY | 2025-04-18 16:01 | XMS_ITS | Clinical Summary ---
Author Organization [facility] Virtual Care Address [address] [place] [address] Phone Care Team Providers Care Supervisor Propellant Charge Loading Name Role Phone Isidro Ma MD Unavailable [phone] Marlene Valles MD Primary Care Provider [phone] Allergies No known active allergies Medications buPROPion [...] Description 04/18/2025 11:45 AM CDT Office Visit [facility] at [address] [address] Xiomara Musa NP Head trauma, [...] on file Legal Sex Female 8:43 AM APPLICATIONS COORDINATOR Gender Identity Not on file Sexual Orientation [...] 1998 Varicella Vaccines Completed 12/28/2007, 07/24/1999 Insurance [employer] HEALTHCARE CIG HEALTHCARE Care Teams Supervisor Propellant Charge Loading Relationship Specialty Start Date End Date Marlene Valles MD [address] [place] [address] PCP - General Family Medicine 04/19/24 Isidro Ma MD Consulting Physician Cardiology 12/03/18
--- OUTSIDE RECORDS SUMMARY | 2025-04-18 16:01 | XMS_ITS | Clinical Summary ---
Author Organization [facility] Address [address] [place] [address] Phone Care Team Providers Care Senior Electronics Engineer Name Role Phone Marlene Valles MD Primary Care Provider [phone] Allergies No known active allergies Medications hydrOXYzine [...] Type Department Care Team Description 03/10/2025 Telephone [facility] - Primary Care - [place] [address] [place] [address] Marlene Valles MD Patient Outreach [...] = 0.6 oz pur e alcohol) [facility] [employer] Answer Date Recorded In the past 12 months has [employer], [employer], oil, or water [employer] threatened to shut off services in your [...] How often do you attend chur or mosque services? Never 03/23/2024 Do you belong to any clubs o r organizations such as muslim groups, unions, fraternal or athletic groups, or [...] medical care, and heating? Somewhat hard 03/23/2024 [facility] of Occupat ional Health - Occupational Stress [...] any time in the past 12 m [facility], were you homeless or living in a senior care (including now)? No 03/23/2024 Comments Unknown Sex and Gender Information Value Date Recorded Sex Assigned at Not on file Legal Sex Female 2:45 AM CODE OFFICIAL Gender Identity Not on file Sexual Orientation Not on file Last Filed Vital Signs Vital Sign Reading Time Taken Comments Blood Pressure 126/75 07/04/2024 3:45 PM CODE OFFICIAL Pulse 66 07/04/2024 3:45 PM CODE OFFICIAL Temperature 36.9 C (98.4 F) 07/04/2024 11:05 AM CODE OFFICIAL Respiratory Rate 16 07/04/2024 4:00 PM CODE OFFICIAL Oxygen Saturation 100% 07/04/2024 4:00 PM CODE OFFICIAL Inhaled Oxygen Concentration - - Weight 72.6 kg (160 lb) 07/04/2024 11:00 AM CODE OFFICIAL Height 175.3 cm (5' 9) 07/04/2024 11:00 AM CODE OFFICIAL Body Mass Index 23.63 07/04/2024 11:00 AM CODE OFFICIAL Plan of Treatment Health Maintenance Due Date [...] HEPATITIS C ANTIBODY Routine 09/01/2023 3:53 PM CODE OFFICIAL Screening examination for STD (sexually transmitted disease) from Last 3 Months or Most Recently Relevant to Health Maintenance Results * HEPATITIS C ANTIBODY (09/01/2023 3:53 PM CODE OFFICIAL) hepatitis C antibody 0.08 <1 S/CO [facility] ARCH [id number] B 09/02/2023 4:47 PM CODE OFFICIAL [facility] Comment: Signal/Cutoff ratio < 0.79 is Nondetected Signal/Cutoff ratio 0.80-0.99 is Grayzone Signal/Cutoff ratio > 0.99 is Detected Supplemental assays are recommended if signal/cutoff ratio is >/=1.00. Signal/cutoff ratio result >/= 5.00 is 97% predictive of positivity for recombinant immunoblot assay (RIBA) and will be reported to the [place] Department of Public Health as required. Blood Venipuncture / Unknown 09/01/2023 3:53 PM CODE OFFICIAL 09/01/2023 3:53 PM CODE OFFICIAL us Marlene Valles MD CHEMISTRY ORDERABLES Final Result [facility] [address] [place] [address], from Last 3 Months or Most Recently Relevant to Health Maintenance Insurance [employer] Care Teams Senior Electronics Engineer Relationship Specialty Start Date End Date Marlene Valles MD [address] [place] [address] PCP - General Family Medicine 09/01/23
== END 2025-04-18 14:45 | disposition home or self-care (01) ==
PROVIDERS: Emergency Provider Family Medicine
DX: S09.90XA Unspecified injury of head, initial encounter (principal); F41.9 Anxiety disorder, unspecified; F32.A Depression, unspecified; Z87.891 Personal history of nicotine dependence; Z79.899 Other long term (current) drug therapy; Y00.XXXA Assault by blunt object, initial encounter
CPT/HCPCS: 70450; 99284